=== PATIENT | male | born 1965 | race Caucasian/White ===

== ENCOUNTER 2022-10-27 19:42 | Inpatient (IN) | payer BC, SELFPAY ==
[2022-10-27 19:44] VITALS: BP 170/68; PULSE 120; RESP 22; TEMP 37.4; O2SAT 71
[2022-10-27 20:01] VITALS: O2SAT 94
--- NOTE | 2022-10-27 20:05 | CT_ITS ---
STUDY: CT ABDOMEN AND PELVIS WITH CONTRAST - URINARY TRACT REASON FOR EXAM: Male, 57 years old. Abdominal distention -- IV PO Contrast RADIATION DOSAGE (If Supplied By Facility): CTDIvol = ( 23.62 ) mGy, DLP = ( 1270.13 ) mGycm TECHNIQUE: IV 100mL Isovue-370 was administered. Transaxial images were obtained from the dome of the diaphragm to the symphysis pubis in the arterial, nephrographic and excretory phases. Multiplanar coronal and sagittal images were reformatted. Individualized Dose Optimization Techniques Were Used For This CT. COMPARISON: None FINDINGS: LOWER CHEST: Referred to the CT chest from the same date for additional findings.. LIVER: Diffuse hepatic nodularity, consistent with cirrhosis. Partially thrombosed main portal and left portal vein. Portosystemic collateral vasculature including splenorenal shunt. GALLBLADDER/BILE DUCTS: Calcified gallstones in the decompressed gallbladder.. PANCREAS: Normal. SPLEEN: Normal. ADRENAL GLANDS: Normal. KIDNEYS/URETERS/BLADDER: Normal. RETROPERITONEUM/AORTA: Mild atherosclerotic calcifications.. BOWEL/MESENTERY: Mild wall thickening throughout the colon. No bowel dilatation. Enteric contrast transits unobstructed into the colon. Scattered mild wall thickening in the small bowel.. APPENDIX: Identified and normal. PERITONEUM: Moderate ascites. Diffuse infiltration of the mesentery and omentum, likely due to ascites. Carcinomatosis is not excluded. REPRODUCTIVE ORGANS: Normal. BONES/SOFT TISSUES: Extensive subcutaneous edema. Bilateral L5 pars defects. Grade 1 anterolisthesis L5 on S1. No acute osseous abnormality.. OTHER: None. CT/Abdomen/Pelvis WITH Contrast IMPRESSION: 1. Cirrhosis and sequela of portal hypertension as above. 2. Partial thrombosis of the portal vein. 3. Mild bowel wall thickening, nonspecific in the setting of cirrhosis and ascites, cannot exclude enterocolitis. 4. Please refer to the CT chest from the same date for additional findings. Electronically Signed: Vazquez Roger MD at 22:54 EDT ,
--- NOTE | 2022-10-27 20:05 | EKG12_ITS ---
Test Reason : CP Blood Pressure : / mmHG Vent. Rate : 105 BPM Atrial Rate : 105 BPM P-R Int : 122 ms QRS Dur : 072 ms QT Int : 314 ms P-R-T Axes : 032 017 009 degrees QTc Int : 415 ms Sinus tachycardia Nonspecific T wave abnormality Abnormal ECG Confirmed by HEIDE CHA, RAJAN ([id number]), school photograph editor AMY LABOY ([id number]) on 10/28/2022 12:59:42 P M Referred By: PANKAJ Confirmed By:JOLANTA JAEGER MD
[2022-10-27 20:17] VITALS: O2SAT 94
[2022-10-27 20:20] VITALS: O2SAT 93
[2022-10-27] MEDS: Aspirin 81 MG TAB.CHEW 324 MG PO (20:23)
[2022-10-27] MEDS: Furosemide 40 MG/4 ML Vial IV (20:23)
[2022-10-27 20:26] VITALS: BMI 37.0
--- NOTE | 2022-10-27 20:27 | ED.VIS.DYS ---
HPI History of Present Illness Chief Complaint: Shortness of Breath Informant: patient Onset/Context/Timing Onset: Weeks (1) Context: gradual Timing: Continuous Quality: Positive for Dyspnea on exertion Worsened by: Exertion Relieved by: Albuterol Associated Symptoms cough; Negative for rhinorrhea, post nasal drip, ear pain, fever, sore throat or chills Chest Pain: Positive for Dull Narrative Narrative: Patient presents with shortness of breath that has been getting worse over the past week. Patient states it is gradually getting worse. Patient states it has been waxing and waning over the past week. Patient states his breathing is worse with any exertion. Patient states his albuterol inhaler seems to help. Patient admits to a cough but does not produce much sputum. Patient does admit to some dull pain in his chest. Patient denies any fevers or chills. Patient does admit to some increased swelling. Patient denies any nausea or vomiting. [facility] Medical History (Updated 10/28/22 @ 01:[address] Brandon Gibson DO) Diabetes Hypertension Hypothyroidism Home Medications levothyroxine 50 mcg tablet 50 mcg PO DAILY 10/27/22 [History Last Taken Unknown] lisinopril 10 mg tablet 10 mg PO DAILY 10/27/22 [History Last Taken Unknown] metformin 750 mg tablet,extended release 24 hr 1,500 mg PO DAILY 10/27/22 [History Last Taken Unknown] metformin 750 mg tablet,extended release 24 hr 750 mg PO QHS 10/27/22 [History Last Taken Unknown] sitagliptin phosphate 100 mg tablet (Januvia) 100 mg PO DAILY 10/27/22 [History Last Taken Unknown] Allergy/AdvReac Type Severity Reaction Status Date / Time No Known Allergies Allergy Verified 10/27/22 20:25 Surgical History no surgical history no surgical history Social History (Updated 10/27/22 @ 20:[address] Brandon Gibson DO) Smoking Status: Former smoker ROS ROS ED Constitutional Constitutional ED: Denies chills or fever(s) Eyes Eyes: Denies blurry vision or change in vision ENT ENT ED: Denies rhinorrhea or sore throat Cardiovascular Cardiovascular: Reports chest pain; Denies palpitations Respiratory/Chest Respiratory/Chest: Reports cough and dyspnea Gastrointestinal Gastrointestinal: Denies nausea or vomiting Genitourinary Genitourinary ED: Denies dysuria or hematuria Musculoskeletal Musculoskeletal: Reports back pain; Denies neck pain Integumentary Reports rash; Denies abscess Neurologic Neurologic: Reports headache(s); Denies weakness Allergic/Immunologic Allergic/Immunologic ED: Denies mouth swelling or urticaria EXAM Physical Exam Const Vital Signs: 10/27/22 19:44 10/27/22 20:01 10/27/22 20:17 Temperature 99.3 F H Temperature Source Temporal Pulse Rate 120 H Respiratory Rate 22 H Respiratory Effort Short of Breath Respiratory Depth Deep Respiratory Pattern Hyperpnea Blood Pressure 170/68 H Blood Pressure Mean 102 Pulse Ox 71 94 Oxygen Delivery Method Room Air Nasal Cannula Nasal Cannula Oxygen Flow Rate (L/min) 6 6 10/27/22 20:20 10/27/22 21:11 Temperature Temperature Source Pulse Rate 106 H Respiratory Rate 25 H Respiratory Effort Respiratory Depth Respiratory Pattern Blood Pressure Blood Pressure Mean Pulse Ox 93 93 Oxygen Delivery Method Nasal Cannula Nasal Cannula Oxygen Flow Rate (L/min) 6 6 Positive well nourished, well developed and obese General Appearance ED: well developed and NAD Nutritional Appearance: obese HEENT Reports moist mucous membranes Eyes PERRL and EOMs intact bilaterally Neck supple and no JVD Resp normal respiratory effort Auscultation: diminished lung sounds diffuse Cardio regular rate and regular rhythm Cardio Narrative: There is a grade 2/6 systolic murmur at the left upper sternal border. GI GI Narrative: Abdomen is distended with positive fluid wave. There is mild diffuse tenderness. There is no rebound or guarding noted. Palpation: soft and tender epigastric, LLQ, RLQ, LUQ, RUQ, periumbilical and suprapubic Extremity normal to inspection General Extremety ED: Negative for edema or tenderness General Extremity: Negative for edema Neuro oriented x3, CN's II-XII intact bilaterally and no sensory deficits noted Sensorium / Orientation: alert Motor Exam: strength 5/5 throughout Psych mental status grossly normal Skin no rashes or lesions noted MDM MDM MDM Narrative Medical decision making narrative: Differential diagnosis includes congestive heart failure, cirrhosis, pancreatitis, urinary tract infection, cardiac dysrhythmia, cardiac ischemia, acute kidney injury, electrolyte abnormality, and pulmonary embolism. EKG will be obtained to assess for cardiac dysrhythmia and cardiac ischemia. Chest x-ray will be obtained to assess for congestive heart failure and pneumonia. CBC will be obtained to assess for leukocytosis and anemia. Comprehensive metabolic profile will be obtained to assess for hepatic function, renal function, and electrolyte abnormality. High-sensitivity troponin will be obtained to assess for cardiac ischemia. 2-hour repeat high-sensitivity troponin will be obtained to assess for ongoing cardiac ischemia. Urinalysis will be obtained to assess for urinary tract infection and hematuria. BNP will be obtained to assess for congestive heart failure. Lipase will be obtained to assess for pancreatitis. PT with INR and PTT will be obtained to assess for coagulopathy. CT scan of the abdomen pelvis will be obtained to assess for ascites and cirrhosis. Lab Data Attestation: I reviewed the patient's lab results. Lab results narrative: CBC was reviewed. There is a mild anemia with a hemoglobin of 10.6 and hematocrit 32.5. Comprehensive metabolic profile was reviewed. Glucose was elevated at 472. Sodium was 129. Potassium was 5.9. Anion gap was normal. CO2 was normal. BUN was only slightly elevated at 21. Liver function tests were all within normal limits. Lipase was reviewed and was normal. PT with INR and PTT were reviewed. PT was 16.5 and INR is 1.3. PTT was normal at 32.4. D-dimer was reviewed and was elevated at 16.75. BNP was only slightly elevated at 117.7. Urinalysis was reviewed and shows urine glucose of 1000. Occult blood was 150 but there were 0 red blood cells seen. There is no evidence of urinary tract infection. Serum acetone was reviewed and was negative. Labs: Laboratory Results - last 24 hr 10/27/22 10/27/22 10/27/22 20:25 20:25 20:25 WBC 8.5 RBC 3.31 L Hgb 10.6 L Hct 32.5 L MCV 98.2 H MCH 32.0 MCHC 32.6 RDW Std Deviation 52.0 H RDW Coeff of [place] 14.5 Plt Count 131 L MPV 8.8 Immature Gran % (Auto) 0.200 Neut % (Auto) 80.5 H Lymph % (Auto) 6.4 L [place] % (Auto) 10.2 H Eos % (Auto) 2.0 Baso % (Auto) 0.7 Absolute Neuts (auto) 6.8 Absolute Lymphs (auto) 0.54 L Nucleated RBC % 0 Differential Comment SCANNED PT 16.5 H INR 1.3 APTT 32.4 D-Dimer Quant (PE/DVT) 16.75 H* Sodium 129 L Potassium 5.9 H Chloride 100 Carbon Dioxide 24.0 Anion Gap 5 BUN 21 H Creatinine 1.18 Estim Creat Clear Calc 65.21 Est GFR (MDRD) Af Amer 81 Est GFR (MDRD) Non-Af 67 BUN/Creatinine Ratio 17.8 Glucose 472 H* Calcium 8.6 Total Bilirubin 0.90 AST 35 ALT 33 Alkaline Phosphatase 84 Troponin I High Sens 56 B-Natriuretic Peptide Total Protein 6.4 Albumin 1.8 L Globulin 4.6 H Albumin/Globulin Ratio 0.4 L Lipase 45 Urine Color Urine Clarity Urine pH Ur Specific [place] Urine Protein Urine Glucose (UA) Urine Ketones Urine Occult Blood Urine Nitrite Urine Bilirubin Urine Urobilinogen Ur Leukocyte Esterase Urine RBC Urine WBC Ur Squamous Epith Cells Urine Bacteria Urine Mucus Acetone Level 10/27/22 10/27/22 10/27/22 20:25 20:55 22:12 WBC RBC Hgb Hct MCV MCH MCHC RDW Std Deviation RDW Coeff of [place] Plt Count MPV Immature Gran % (Auto) Neut % (Auto) Lymph % (Auto) [place] % (Auto) Eos % (Auto) Baso % (Auto) Absolute Neuts (auto) Absolute Lymphs (auto) Nucleated RBC % Differential Comment PT INR APTT D-Dimer Quant (PE/DVT) Sodium Potassium Chloride Carbon Dioxide Anion Gap BUN Creatinine Estim Creat Clear Calc Est GFR (MDRD) Af Amer Est GFR (MDRD) Non-Af BUN/Creatinine Ratio Glucose Calcium Total Bilirubin AST ALT Alkaline Phosphatase Troponin I High Sens B-Natriuretic Peptide 117.7 H Total Protein Albumin Globulin Albumin/Globulin Ratio Lipase Urine Color Yellow Urine Clarity Clear Urine pH 6.0 Ur Specific [place] 1.015 Urine Protein 30 H Urine Glucose (UA) 1000 H Urine Ketones Negative Urine Occult Blood 150 H Urine Nitrite Negative Urine Bilirubin Negative Urine Urobilinogen Normal Ur Leukocyte Esterase Negative Urine RBC 0 SEEN Urine WBC 0 SEEN Ur Squamous Epith Cells 0 SEEN Urine Bacteria 0 SEEN Urine Mucus 0 SEEN Acetone Level NEGATIVE Radiography Diagnostic Testing: Clinical Impression(s) from Imaging Studies Abdomen/Pelvis CT 10/27/22 20:05 IMPRESSION: 1. Cirrhosis and sequela of portal hypertension as above. 2. Partial thrombosis of the portal vein. 3. Mild bowel wall thickening, nonspecific in the setting of cirrhosis and ascites, cannot exclude enterocolitis. 4. Please refer to the CT chest from the same date for additional findings. Electronically Signed: Vazquez Roger MD at 22:54 EDT , Chest CTA 10/27/22 21:36 IMPRESSION: 1. Evaluation limited due to motion. 2. No pulmonary embolism to the lobar level. 3. Large left pleural effusion. 4. Atelectasis of the left lower lobe and partial atelectasis of left upper lobe. 5. Scattered groundglass opacities in the right lung with associated bronchiectasis, differential includes chronic inflammatory changes, interstitial fibrotic changes or infection. 6. Cirrhosis and sequela of portal hypertension. Please refer to the CT abdomen pelvis from the same date for additional findings. Electronically Signed: Vazquez Roger MD at 22:48 EDT , CT scan of the abdomen pelvis was obtained. There is cirrhosis and portal hypertension. There is a partial thrombosis of the portal vein. There is some mild bowel wall thickening which is nonspecific. This was interpreted by the radiologist and was independently reviewed by myself. Due to the elevated D-dimer, CTA of the chest was obtained. There is no evidence of pulmonary embolism to the lobar level. There is a large left pleural effusion. There is atelectasis of the left lower lobe and partial atelectasis of the left upper lobe. There are scattered groundglass opacities in the right lung associated with bronchiectasis. This was interpreted by the radiologist was also independently reviewed by myself. EKG Initial EKG: Attestation: I personally reviewed and interpreted this EKG as follows: Interpretation: Sinus Tachycardia (105) and Non-Specific ST Changes Comments: EKG was obtained. On my independent interpretation, it showed a sinus tachycardia with a rate of 105. NC interval, QRS interval, and QTc intervals were all normal. [place] was normal. There are nonspecific ST-T wave changes. Prior EKG tracings: not available for review Prior: No Prior Management Discussion w/another healthcare provider: Hospitalist and Avionics Integration Engineer Treatment and Re-Evaluation :: Patient was given Lasix initially. Patient was given aspirin. Because of the hyperkalemia, patient was given calcium gluconate, and insulin. Because of the partial thrombosis of the portal vein, patient was given a dose of Lovenox. Patient was advised of his findings. Patient was advised of the need for admission to the hospital. Case was discussed with the hospitalist. He recommended consulting with Dr. Eisenberg, vascular surgeon, regarding the partial thrombosis of the portal vein. Dr. Eisenberg did not recommend any further treatment. Hospitalist will admit the patient to PCU. Patient understood and was agreeable with the plan. All questions were answered. Critical Care Time Critical Care Time: Yes Critical care time (excluding procedures): 30-74 minutes (32), Including time spent:, Discussing w/Patient &/or Family/Tubular Riveter, Discussing w/Consultants, Arranging Admission or Transfer and Performing Direct Patient Care at Bedside Discharge Plan Dx/Rx/DC Orders Clinical Impression: Hypoxia, Pleural effusion, Ascites, Cirrhosis of liver, Hyperkalemia, Hyperglycemia Disposition Disposition: Acute Care Hospital [facility]
[2022-10-27 20:42] LABS: Absolute Lymphocyte Count 0.54 X10^3/uL (0.83-4.51); Absolute Neutrophil Count 6.8 X10^3/uL (2.0-7.7); Basophil# 0.06 X10^3/uL; Basophil% 0.7 % (0-1); Eosinophil# 0.17 X10^3/uL; Hematocrit 32.5 % (40-54); Hemoglobin 10.6 g/dL (13.0-16.5); Lymphocyte # 0.54 X10^3/ul (0.83-4.51); Lymphocyte % 6.4 % (19-41); Mean Corp Hgb Conc 32.6 g/dL (32-36); Mean Corpuscular Volume 98.2 fL (80-94); Mean Platelet Vol. 8.8 fl (6.2-12.0); Monocyte# 0.86 X10^3/uL; Monocyte% 10.2 % (0-10); NRBC Flagged by Analyzer 0 % (0-5); Neutrophil % 80.5 % (47-70); POSITIVE DIFFERENTIAL YES; Platelet Count 131 K/mm3 (150-450); RBC Distribution Width CV 14.5 % (11.6-14.6); Red Blood Count 3.31 M/mm3 (4.6-6.2); White Blood Count 8.5 K/mm3 (4.4-11.0)
[2022-10-27 20:44] LABS: Differential Indicated SCAN CRITERIA MET
[2022-10-27 21:01] LABS: Bacteria 0 SEEN /hpf (None Seen); Mucous, Urine 0 SEEN /hpf (<or=2+); Red Blood Cells-Urine 0 SEEN /hpf (0-5); Squamous Epithelial Cells - UA 0 SEEN /hpf (0-5); White Blood Cells 0 SEEN /hpf (0-5)
[2022-10-27 21:05] LABS: ALB/GLOB Ratio 0.4 RATIO (0.9-2.4); AST(SGOT) 35 U/L (15-37); Alanine Aminotransfer ALT/SGPT 33 U/L (16-61); Albumin, Serum 1.8 g/dL (3.2-5.0); Alkaline Phosphatase 84 U/L (45-117); Anion Gap 5 (5-15); BUN 21 mg/dL (7-18); BUN/Creat Ratio 17.8 RATIO (10-20); Calcium,Total 8.6 mg/dL (8.5-10.1); Chloride 100 mmol/L (98-107); Creatinine, Serum 1.18 mg/dL (0.70-1.30); EST Glomerular Filtration Rate 67 mL/min (>60); Est Glom Filt Rate - Afr Amer 81 mL/min (>60); Estimated Creatinine Clearance 65.21 ml/min; Globulin 4.6 g/dL (2.2-4.2); Glucose 472 mg/dL (74-106); Lipase 45 U/L (13-75); Potassium 5.9 mmol/L (3.5-5.1); Protein, Total 6.4 g/dL (6.4-8.2); Sodium Level 129 mmol/L (136-145); Troponin-I HS (w/2H Reflex) 56 pg/mL (3.0-78.0)
[2022-10-27 21:07] LABS: Differential Comment SCANNED
[2022-10-27 21:10] LABS: International Normalized Ratio 1.3; Prothrombin Time (Protime)PT. 16.5 SECONDS (11.7-14.9)
[2022-10-27 21:11] VITALS: PULSE 106; RESP 25; O2SAT 93
[2022-10-27 21:11] LABS: Partial Thromboplast Time 32.4 Seconds (24.1-36.2)
[2022-10-27 21:12] LABS: D-Dimer Quantitative (DVT/PE) 16.75 FEU/ug/m (0.27-0.49)
[2022-10-27 21:19] LABS: Color, Urine Yellow (Yellow); Glucose, Dipstick 1000 mg/dl (Normal); Ketone-Dipstick Negative (Negative); Leukocyte Esterase-Dipstick Negative /ul (Negative); Nitrite-Dipstick Negative (Negative); Occult Blood-Urine 150 /ul (Negative); Protein-Dipstick 30 mg/dl (Negative); Specific Gravity, Urine 1.015 (1.002-1.030); Urine Bilirubin Dipstick Negative (Negative); Urine Clarity Clear (Clear); Urine Urobilinogen Normal (Normal)
[2022-10-27 21:31] LABS: BNP,B-Type NATRIURETIC PEPTIDE 117.7 pg/mL (0-100)
--- NOTE | 2022-10-27 21:36 | CT_ITS ---
STUDY: CTA CHEST REASON FOR EXAM: Male, 57 years old. Elevated D-dimer RADIATION DOSAGE (If Supplied By Facility): CTDIvol = ( 22.46 ) mGy, DLP = ( 759.76 ) mGycm TECHNIQUE: The examination was performed with the intravenous administration of IV 100mL Isovue-370. Post-processing of the angiographic images was performed, with multiplanar reformation and 3D reconstruction. Individualized dose optimization techniques were used for this CT. COMPARISON: None FINDINGS: Evaluation limited due to motion. LUNGS: Subsegmental right upper lobe bronchiectasis and groundglass opacities with additional scattered peripheral groundglass opacities in the right lung. Atelectasis of the left lower lobe. Partial atelectasis of the left upper lobe.. AORTA/GREAT VESSELS: No aneurysm. Mild atherosclerotic calcifications. PULMONARY VESSELS: Evaluation limited due to motion. No pulmonary embolus to the lobar level. PLEURA: Large left pleural effusion. MEDIASTINUM: Coronary artery calcifications. And aortic valvular calcifications. UPPER ABDOMEN: The liver is diffusely nodular, consistent with cirrhosis. Portosystemic collateral vasculature partially visualized. BONES/SOFT TISSUES: Normal. OTHER: None. CT/CTA Chest W/WO Contrast IMPRESSION: 1. Evaluation limited due to motion. 2. No pulmonary embolism to the lobar level. 3. Large left pleural effusion. 4. Atelectasis of the left lower lobe and partial atelectasis of left upper lobe. 5. Scattered groundglass opacities in the right lung with associated bronchiectasis, differential includes chronic inflammatory changes, interstitial fibrotic changes or infection. 6. Cirrhosis and sequela of portal hypertension. Please refer to the CT abdomen pelvis from the same date for additional findings. Electronically Signed: Vazquez Roger MD at 22:48 EDT ,
[2022-10-27] MEDS: Calcium Gluconate IV 3 GM in Syringe 1 EACH IV (22:13)
[2022-10-27] MEDS: Insulin Lispro 10 UNIT in Syringe 0 ML 6 UNIT IV (22:13)
[2022-10-28] VITALS (11 sets, daily range): BP systolic 112–165; BP diastolic 53–70; PULSE 70–98; RESP 18–24; TEMP 36.3–37.2; O2SAT 91–97; BMI 37.7; BMI 37.9
[2022-10-28] MEDS: Enoxaparin 100 MG/ML Syringe SC (00:05)
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
--- NOTE | 2022-10-28 01:28 | US_ITS ---
PROCEDURE: Ultrasound guided paracentesis. DATE OF EXAMINATION: October 28, 2022. INDICATION: Male, 57 years old. Ascites. PHYSICIAN: Calvin Mcclure M.D. TECHNIQUE: The risks, benefits, and alternatives to the procedure were explained to the patient. The specific risks of bleeding, infection, and damage to bowel were detailed and accepted. Witnessed informed consent was obtained. The abdomen was ultrasonographically surveyed. An appropriate pocket of fluid was identified at the left lower quadrant. The skin were cleaned and prepped in the usual sterile fashion. Using ultrasound guidance, the peritoneal cavity was accessed with a 5-Maori paracentesis needle/catheter system. The trocar was removed. A total of 3250 ml of chitra-colored fluid were removed from the peritoneal cavity. A 100 mL sample was sent to the laboratory for analysis. The catheter was removed and a sterile dressing was applied. The procedure was well tolerated. US/Paracentesis with US IMPRESSION: Ultrasound guided paracentesis. Electronically Signed: Calvin Mcclure MD at 14:54 EDT ,
[2022-10-28] MEDS: Levothyroxine 50 MCG Tablet PO (05:10)
[2022-10-28 07:08] LABS: Absolute Lymphocyte Count 0.62 X10^3/uL (0.83-4.51); Absolute Neutrophil Count 6.5 X10^3/uL (2.0-7.7); Basophil# 0.08 X10^3/uL; Basophil% 0.9 % (0-1); Eosinophil# 0.37 X10^3/uL; Eosinophils% 4.2 % (0-5); Hematocrit 32.1 % (40-54); Hemoglobin 10.1 g/dL (13.0-16.5); Lymphocyte # 0.62 X10^3/ul (0.83-4.51); Lymphocyte % 7.1 % (19-41); Mean Corp Hgb Conc 31.5 g/dL (32-36); Mean Corpuscular Hgb 31.6 pg (27.0-32.0); Mean Corpuscular Volume 100.3 fL (80-94); Mean Platelet Vol. 8.9 fl (6.2-12.0); Monocyte# 1.06 X10^3/uL; Monocyte% 12.2 % (0-10); NRBC Flagged by Analyzer 0 % (0-5); Neutrophil # 6.54 X10^3/uL (2.7-7.7); Neutrophil % 75.1 % (47-70); Platelet Count 155 K/mm3 (150-450); RBC Distribution Width CV 14.4 % (11.6-14.6); RBC Distribution Width SD 53.5 fl (35.1-43.9); White Blood Count 8.7 K/mm3 (4.4-11.0)
[2022-10-28 07:25] LABS: ALB/GLOB Ratio 0.4 RATIO (0.9-2.4); AST(SGOT) 29 U/L (15-37); Alanine Aminotransfer ALT/SGPT 31 U/L (16-61); Albumin, Serum 1.8 g/dL (3.2-5.0); Alkaline Phosphatase 85 U/L (45-117); Anion Gap 5 (5-15); BUN 20 mg/dL (7-18); BUN/Creat Ratio 20.5 RATIO (10-20); Calcium,Total 8.8 mg/dL (8.5-10.1); Chloride 100 mmol/L (98-107); Creatinine, Serum 0.98 mg/dL (0.70-1.30); EST Glomerular Filtration Rate 84 mL/min (>60); Est Glom Filt Rate - Afr Amer 101 mL/min (>60); Estimated Creatinine Clearance 73.24 ml/min; Globulin 4.4 g/dL (2.2-4.2); Glucose 391 mg/dL (74-106); Potassium 5.5 mmol/L (3.5-5.1); Protein, Total 6.2 g/dL (6.4-8.2); Sodium Level 130 mmol/L (136-145)
[2022-10-28] MEDS: Insulin Lispro 100 UNIT/ML INSULN.PEN SC ×4 (07:28→21:09)
[2022-10-28 07:45] LABS: Bedside Glucose 382 mg/dL (74-106)
--- NOTE | 2022-10-28 07:57 | PCM.PN.HOSP ---
Reason for Visit Reason for Visit: Shortness of breath Subjective Subjective Patient is a 57-year-old male with a history of alcohol abuse who presented to the emergency department with progressively worsening shortness of breath. He has no known history of liver disease at presentation. He reported his shortness of breath was at rest but markedly increased with exertion. He has a chronic cough which is occasionally productive of whitish to yellowish sputum and has had worsening swelling in his legs and abdomen. Oxygen saturation on presentation was 71% on room air. His vital signs were otherwise fairly unremarkable. CBC showed an anemia that is macrocytic in nature but was otherwise unremarkable. We have no baseline data on this gentleman. INR was 1.3. D-dimer was markedly elevated at 16.75. Chemistry panel showed hyponatremia with a sodium of 129, hyperkalemia with a potassium of 5.9. Renal function was normal at 1.18. Glucose was 472 with a normal anion gap and bicarb. BNP was slightly elevated 117.7. His albumin is low. UA was overall unremarkable. D-dimer a CTA of the chest and CT of the abdomen pelvis was performed. CTA of the chest showed no pulmonary embolus, large left pleural effusion, atelectasis of the left lower lobe and scattered groundglass opacities in the right lung associated bronchiectasis as well as cirrhosis with sequela of portal hypertension. Abdominal CTA showed cirrhosis with portal hypertension, partial thrombus of the portal vein, and mild bowel wall thickening. He was given therapeutic dose of Lovenox x1 emergency department and admitted to the medical floor. Patient was evaluated and is at bedside helps with history. Per discussion he has had some worsening swelling over the last about month may be 8 weeks that has been more fluctuating than it is at the time of presentation. He typically weighs 185 pounds so his current weight is up dramatically. They report that his primary care physician noted a cardiac murmur for which an echocardiogram was ordered however they have not yet been able to make this appointment. The patient has no significant alcohol abuse history. He is never been told he has liver disease. He never used any IV drugs. Only history of drug use is marijuana. He states his mother had liver disease and thought she from complications related to this. He is unclear what type of liver disease she had. He has never been told previously that he has any liver abnormalities. Objective Data Objective Data Vital Signs: Vital Signs Temp Pulse Resp BP Pulse Ox O2 Del Method O2 Flow Rate 98.6 F 93 18 140/62 H 94 Nasal Cannula 5 10/28/22 05:18 10/28/22 05:18 10/28/22 05:18 10/28/22 05:18 10/28/22 05:18 10/28/22 05:18 10/28/22 05:18 Oxygen Flow Rate (L/min) 5 Oxygen Delivery Method Nasal Cannula Weight: 107 kg Body Mass Index (BMI) 37.9 Intake & Output: Intake and Output for Last 24 Hours 10/26/22 10/27/22 10/28/22 23:59 23:59 23:59 Intake Total 200 / 200 Balance 200 / 200 Lab / Micro Data Result Diagrams: 10/28/22 06:40 10/28/22 06:40 Labs: Laboratory Results - last 24 hr 10/27/22 20:25: WBC 8.5, RBC 3.31 L, Hgb 10.6 L, Hct 32.5 L, MCV 98.2 H, MCH 32.0, MCHC 32.6, RDW Std Deviation 52.0 H, RDW Coeff of [place] 14.5, Plt Count 131 L, MPV 8.8, Immature Gran % (Auto) 0.200, Neut % (Auto) 80.5 H, Lymph % (Auto) 6.4 L, [place] % (Auto) 10.2 H, Eos % (Auto) 2.0, Baso % (Auto) 0.7, Absolute Neuts (auto) 6.8, Absolute Lymphs (auto) 0.54 L, Nucleated RBC % 0, Differential Comment SCANNED 10/27/22 20:25: Sodium 129 L, Potassium 5.9 H, Chloride 100, Carbon Dioxide 24.0, Anion Gap 5, BUN 21 H, Creatinine 1.18, Estim Creat Clear Calc 65.21, Est GFR (MDRD) Af Amer 81, Est GFR (MDRD) Non-Af 67, BUN/Creatinine Ratio 17.8, Glucose 472 H*, Calcium 8.6, Total Bilirubin 0.90, AST 35, ALT 33, Alkaline Phosphatase 84, Troponin I High Sens 56, Total Protein 6.4, Albumin 1.8 L, Globulin 4.6 H, Albumin/Globulin Ratio 0.4 L, Lipase 45 10/27/22 20:25: PT 16.5 H, INR 1.3, APTT 32.4, D-Dimer Quant (PE/DVT) 16.75 H* 10/27/22 20:25: B-Natriuretic Peptide 117.7 H 10/27/22 20:55: Urine Color Yellow, Urine Clarity Clear, Urine pH 6.0, Ur Specific [place] 1.015, Urine Protein 30 H, Urine Glucose (UA) 1000 H, Urine Ketones Negative, Urine Occult Blood 150 H, Urine Nitrite Negative, Urine Bilirubin Negative, Urine Urobilinogen Normal, Ur Leukocyte Esterase Negative, Urine RBC 0 SEEN, Urine WBC 0 SEEN, Ur Squamous Epith Cells 0 SEEN, Urine Bacteria 0 SEEN, Urine Mucus 0 SEEN 10/27/22 22:12: Acetone Level NEGATIVE 10/28/22 06:40: WBC 8.7, RBC 3.20 L, Hgb 10.1 L, Hct 32.1 L, MCV 100.3 H, MCH 31.6, MCHC 31.5 L, RDW Std Deviation 53.5 H, RDW Coeff of Luna 14.4, Plt Count 155, MPV 8.9, Immature Gran % (Auto) 0.500, Neut % (Auto) 75.1 H, Lymph % (Auto) 7.1 L, [place] % (Auto) 12.2 H, Eos % (Auto) 4.2, Baso % (Auto) 0.9, Absolute Neuts (auto) 6.5, Absolute Lymphs (auto) 0.62 L, Nucleated RBC % 0 10/28/22 06:40: Sodium 130 L, Potassium 5.5 H, Chloride 100, Carbon Dioxide 25.0, Anion Gap 5, BUN 20 H, Creatinine 0.98, Estim Creat Clear Calc 73.24, Est GFR (MDRD) Af Amer 101, Est GFR (MDRD) Non-Af 84, BUN/Creatinine Ratio 20.5 H, Glucose 391 H, Calcium 8.8, Total Bilirubin 0.90, AST 29, ALT 31, Alkaline Phosphatase 85, Total Protein 6.2 L, Albumin 1.8 L, Globulin 4.4 H, Albumin/Globulin Ratio 0.4 L 10/28/22 07:26: POC Glucose 382 H Radiography Diagnostic Testing: Radiology Impression Abdomen/Pelvis CT 10/27/22 20:05 IMPRESSION: 1. Cirrhosis and sequela of portal hypertension as above. 2. Partial thrombosis of the portal vein. 3. Mild bowel wall thickening, nonspecific in the setting of cirrhosis and ascites, cannot exclude enterocolitis. 4. Please refer to the CT chest from the same date for additional findings. Electronically Signed: Vazquez Roger MD at 22:54 EDT , Chest CTA 10/27/22 21:36 IMPRESSION: 1. Evaluation limited due to motion. 2. No pulmonary embolism to the lobar level. 3. Large left pleural effusion. 4. Atelectasis of the left lower lobe and partial atelectasis of left upper lobe. 5. Scattered groundglass opacities in the right lung with associated bronchiectasis, differential includes chronic inflammatory changes, interstitial fibrotic changes or infection. 6. Cirrhosis and sequela of portal hypertension. Please refer to the CT abdomen pelvis from the same date for additional findings. Electronically Signed: Vazquez Roger MD at 22:48 EDT , Physical Exam Const alert, oriented x3 and no apparent distress Constitutional Narrative: Upper middle-aged white male, lying in bed, appears much older than stated age, at bedside, appears comfortable and nontoxic at this time however does look chronically ill, appearance is somewhat disheveled HEENT head/scalp atraumatic, moist oral mucous membranes and oropharynx normal HEENT Narrative: Dentition is poor, Mallampati is 2, no thrush Eyes PERRL, EOMs intact bilaterally and conjunctivae normal Eyes Narrative: No scleral icterus Neck no lymphadenopathy, supple, no JVD and no carotid bruits Neck Narrative: Cardiac murmur that radiates to bilateral carotid arteries, trachea midline, no thyroid enlargement Resp normal respiratory effort, no retractions and no use of accessory muscles Resp Narrative: Marked diminished on the right, few scattered wheeze on the left Auscultation: wheezes; Negative for rales or rhonchi Cardio regular rate, regular rhythm, S1 normal heart sound, no rub, no gallops and no clicks; Negative for S2 normal heart sound or no murmurs Cardio Narrative: 4 out of 6 systolic murmur with a soft S2 radiates to bilateral carotid arteries loudest at right upper sternal border however here diffusely GI soft to palpation GI Narrative: Protuberant abdomen, no significant fluid wave, no organomegaly noted on exam however exam limited secondary to abdominal size, bowel sounds are normal Extremity Extremity Narrative: 3+ bilateral doughy pitting edema from feet up to thighs with some anasarca noted in anterior abdomen, no cyanosis or clubbing Skin No no rashes or lesions noted, no wounds, skin turgor normal, no jaundice, no petechiae and no mottling Skin Narrative: telangiectasias noted all over chest and arms Neuro oriented x3, CN's II-XII intact bilaterally, moves all extremities, no focal motor deficits and no sensory deficits noted Neuro Narrative: Generalized weakness Speech: speech normal Psych Psych Narrative: Affect is flattened mood seems somewhat depressed Assessment & Plan Assessment/Plan (1) Acute respiratory failure with hypoxia: (2) Pleural effusion: (3) Ascites: (4) Cirrhosis of liver: (5) Hyperkalemia: (6) Hyperglycemia: (7) Anasarca: (8) Macrocytic anemia: (9) Portal vein thrombosis: (10) Hyponatremia: PLAN: Plan Acute hypoxic respiratory failure secondary to large left pleural effusion -Patient is not oxygen dependent at baseline -Sats at 71% on presentation and patient with tachypnea, tachycardia, and elevated blood pressure related to respiratory distress -Oxygen saturations improved and placed on 6 L nasal cannula and now has been weaned to 5 L nasal cannula with oxygen saturations between 91 and 94% -Wean oxygen as able -We will add as needed albuterol with tobacco abuse history -Thoracentesis ordered -Labs added to calculate lights criteria -Discontinue Lasix 20 mg p.o. twice daily -Suspect oral will not be very effective especially at a low dose given his amount of anasarca and appearing bowel wall edema on CAT scan -Start Bumex IV 1 mg twice daily Large left pleural effusion -May be related to liver disease -Check echocardiogram -Thoracentesis with lab pending -If related to liver disease may recur -Diuretics as above Anasarca -Diuretics as above -Anticipate related to renal failure -We will check echocardiogram to rule out cardiac component Portal vein thrombus -Anticipate related to cirrhosis -JAK2, CD55/CD59 ordered by admitting physician--> pending -Lovenox given emergency department -Start heparin drip this morning as patient will be going for procedures and this is easily reversible -Stop 2 hours prior to thoracentesis then reinitiate following Liver cirrhosis -Etiology is unclear -Patient has never been a heavy user of alcohol however has consumed previously -Check hepatitis C and B antibodies -Check AFP -Check ammonia level and will initiate lactulose if at all elevated to prevent hepatic encephalopathy -Is currently not encephalopathic although does seem fatigued -Nadolol initiated -MELD score was 19.4/Child-Albarran score was 9-class B -Start thiamine and folate -GI consult pending Hyponatremia -Not severe and I suspect this may be chronic however baseline lab is unclear at this time -Likely related to liver disease and volume status -Diuretics as above -Repeat BMP this afternoon and then again in the a.m. Macrocytic anemia -Baseline hemoglobin unknown -No obvious signs of bleeding at this time -Check B12 and folate level -Monitor CBC DM-2 with hyperglycemia -Hold metformin -Hold Januvia -A1c is pending -Patient was markedly hyperglycemic on presentation with a blood sugar greater than 400 -Start Lantus 20 units daily -Sliding scale -Accu-Cheks Hyperkalemia -Hold lisinopril -Continue diuretic -Patient received insulin/Lasix/calcium gluconate on presentation -Repeat BMP today at 1300 -Patient does not appear to be acidotic Hypertension -Blood pressure elevated -Nadolol added -Hold lisinopril due to hyperkalemia -As needed hydralazine Hypothyroidism -Continue levothyroxine -Check a.m. TSH DVT prophylaxis -Full anticoagulation with heparin drip CODE STATUS -Full code
--- NOTE | 2022-10-28 08:22 | ECHOD_ITS ---
Reason For Study: OTHER Procedure This was a 2D Doppler, Color Flow transthoracic echocardiogram. Technically difficult study due to uncooperative patient. Patient refused SSN. Exam performed portable in patient room. Left Ventricle Normal LV size. The estimated ejection fraction is 65 %. Normal diastology for age. No regional wall motion abnormalities noted. Right Ventricle Normal RV size. Normal systolic function. Atria Normal left atrium. Normal right atrium. Mitral Valve There is no mitral valve stenosis. No mitral valve insufficiency. Tricuspid Valve There is no tricuspid stenosis. Unable to estimate RV systolic pressure due to inadequate jet, pulmonary artery pressure probably normal. Aortic Valve The aortic valve is not well visualized. Aortic valve is not well-visualized. By Doppler criteria there appears to be mild aortic stenosis. No aortic valve insufficiency. Pulmonic Valve There is no pulmonic valvular stenosis. No pulmonic valve insufficiency. Great Vessels Normal aortic root. Pericardium/Pleural No pericardial effusion. MMode/2D Measurements & Calculations LAV(MOD-bp): 46.6 ml LVAd ap4: 29.1 cm2 SV(MOD-sp4): 55.2 ml LAV(MOD-bp) Indexed: 21.7 ml/m2 LVLd ap4: 8.1 cm LAV(MOD-sp2): 43.2 ml EDV(MOD-sp4): 85.4 ml LAV(MOD-sp4): 50.5 ml EDV(sp4-el): 88.7 ml LVAs ap4: 15.0 cm2 LVLs ap4: 6.7 cm ESV(MOD-sp4): 30.2 ml ESV(sp4-el): 28.5 ml EF(MOD-sp4): 64.7 % EF(sp4-el): 67.8 % SV(sp4-el): 60.1 ml LA A4 area: 18.8 cm2 RA A4 area: 11.0 cm2 Time Measurements MV dec time: 0.32 sec Doppler Measurements & Calculations MV E max lino: 113.1 cm/sec Lat Peak E' Lino: 12.7 cm/sec Med Peak E' Lino: 9.5 cm/sec MV A max lino: 86.4 cm/sec E/E' lat: 8.9 E/E' med: 11.9 MV E/A: 1.3 MV V2 max: 143.4 cm/sec Ao V2 max: 290.6 cm/sec MV max P.3 mmHg MV dec slope: 371.9 cm/sec2 Ao max P.9 mmHg MV V2 mean: 106.7 cm/sec Ao V2 mean: 200.7 cm/sec MV mean P.8 mmHg Ao mean P.1 mmHg MV V2 VTI: 46.4 cm Ao V2 VTI: 53.9 cm LV V1 max: 141.9 cm/sec LV V1 max P.1 mmHg ECHO/Echo Complete Interpretation Summary Technically difficult study due to patient being uncooperative. The estimated ejection fraction is 65 %. Aortic valve is not well-visualized. By Doppler criteria there appears to be mi ld aortic stenosis. Ordering Physician: Katrin Mcclelland Referring Physician: ADALID WEST Performed By: Toña Little RCS
[2022-10-28 08:27] LABS: Hemoglobin A1c 7.4 % (3.8-5.6)
[2022-10-28 08:35] LABS: LDH 264 U/L (87-241)
[2022-10-28 08:38] LABS: Vitamin B12 1847 pg/mL (211-911)
[2022-10-28] MEDS: Ceftriaxone 1 GM/50 ML BAG IV (10:31)
[2022-10-28] MEDS: Bumetanide 1 MG/4 ML Vial IV ×2 (10:47→16:46)
[2022-10-28] MEDS: 0.9% Saline Lock 10 ML Syringe IV ×2 (10:47→16:46)
[2022-10-28] MEDS: Nadolol 20 MG Tablet 40 MG PO (10:50)
[2022-10-28] MEDS: LINAGLIPTIN 5 MG TABLET PO (10:51)
[2022-10-28] MEDS: Insulin Glargine-YFGN 100 UNIT/ML Pen 20 UNIT SC (10:53)
[2022-10-28 11:55] LABS: Bedside Glucose 408 mg/dL (74-106)
--- NOTE | 2022-10-28 12:00 | CASEMGMT ---
RN GAL Face to Face with patient for initial transition planning/care coordination assessment. RN CM introduced self and role at [facility]. Patient lying in bed, alert and oriented, at bedside. Patient willing to participate in assessment and is able to answer all questions appropriately. Care providers, pharmacy, and demographics verified. Patient wishes to discharge home, denies need for home health at this time. Patient states he has no further needs or concerns at this time. CM to follow for discharge planning needs that may arise. PCP: Ragini, but is leaving and needs new PCP, list provided Specialists: none Preferred Pharmacy: [facility] Insurance: [employer] Prescription Benefit:yes Living Will/HPOA: none LNOK: Living Arrangements: Patient lives with in a 2 story home with bed and bath on first floor. Patient had ramp to enter the home. Patient is independent at home. Transportation: self, DME/HHC: Patient has cane. Patient denies previous HHC or SNF. Disposition Plan: Patient to discharge home with family support. Will monitor for home oxygen at discharge. Kayley BARRAZA, RN, CM
[2022-10-28 12:31] LABS: Hepatitis B Surface Antibody Non-Reactive; Hepatitis C Antibody Non-Reactive (Nonreactive)
--- NOTE | 2022-10-28 13:06 | MRI_ITS ---
INDICATION: Cirrhosis, portal vein thrombosis, elevated alpha- protein. EXAMINATION: MR Abdomen W/O Contrast TECHNIQUE: Multiplanar and multisequence MR images of the abdomen were obtained. IV Contrast Dosage and Agent: None. COMPARISON: CTA chest and CT abdomen and pelvis October 27, 2022. FINDINGS: engineering specialist technician states patient uncooperative, moving throughout the exam. Examination is significantly degraded by motion artifact on all series. LOWER CHEST: Large left pleural effusion and left lower lobe atelectasis. No cardiomegaly or pericardial effusion. LIVER: Extensively lobulated, cirrhotic liver morphology, enlarged caudate lobe. Thrombosis of the portal vein, better demonstrated on the contrast enhanced CT examination. No definite mass, limited by motion. GALLBLADDER AND BILIARY TREE: Completely distended with several low T2 signal intensity stones. No biliary ductal dilatation. PANCREAS: No focal cystic or solid mass. No interstitial edema or pancreatic duct dilatation identified. SPLEEN: Enlarged, approximately 15 cm AP, without focal cystic or solid mass. ADRENAL GLANDS: No nodules. KIDNEYS AND URETERS: Normal renal size and position. No hydronephrosis. PERITONEUM: Ascites within the abdomen and pelvis. LYMPH NODES: Enlarged marcus hepatis lymph nodes, better demonstrated on CT. VESSELS: Aorta is non-dilated. Normal flow void. MRI/Abdomen without Contrast IMPRESSION: Examination is significantly degraded by motion artifact. Left pleural effusion with left lower lobe atelectasis or pneumonia. Cirrhosis and portal venous hypertension. Portal vein thrombosis better demonstrated by CT with contrast. Ascites. Cholelithiasis. Consider repeat MRI evaluation without and with contrast, possibly with sedation. Electronically Signed: Rafael Gregorio MD at 17:49 EDT ,
[2022-10-28 13:15] LABS: Anion Gap 3 (5-15); BUN 19 mg/dL (7-18); BUN/Creat Ratio 17.1 RATIO (10-20); Calcium,Total 8.8 mg/dL (8.5-10.1); Chloride 100 mmol/L (98-107); Creatinine, Serum 1.11 mg/dL (0.70-1.30); EST Glomerular Filtration Rate 72 mL/min (>60); Est Glom Filt Rate - Afr Amer 87 mL/min (>60); Estimated Creatinine Clearance 64.66 ml/min; Glucose 375 mg/dL (74-106); Potassium 5.5 mmol/L (3.5-5.1); Sodium Level 130 mmol/L (136-145)
[2022-10-28 13:45] LABS: Ferritin 38 ng/mL (26-388); Iron 33 ug/dL (65-175); Iron Binding Capacity,Total 283 ug/dL (250-450); PERCENT IRON SATURATION 11.7 % (15.0-55.0)
[2022-10-28] MEDS: Lidocaine 2% (20 ml mdv) 20 ML Vial INFILT (14:00)
--- NOTE | 2022-10-28 14:00 | FLU_PTH ---
PATIENT: SEBAS YI II LOC: [facility] U#:[id number] AGE/SX: 57/M ROOM: [facility] RE10/28/[address]: Dr. Katrin Mcclelland DO : 1965 BED: 1 DIS: 10/31/2022 SPEC #: [id number] RECD: 10/28/22 14:32 STATUS: KARAN REQ #: [id number] SYDNEY: 10/28/22 14:[address]: Katrin Mcclelland DEPT: CYTOLOGY RECD BY: Mitzi Banda ENTERED: 10/29/22 09:32 SP TYPE: Fluid OTHR DR: MD Dr. Xochitl June DO Dr. Rahsaan Friend, Tissues: PARACENTESIS FLUID Procedures: Special Stain Group II Surgery Specimen Level IV Cytospin Fluid HEADER OPERATION: Paracentesis PRE-OP DIAGNOSIS: Ascites TISSUE SUBMITTED: Paracentesis fluid for cytology DIAGNOSIS CYTOLOGY Paracentesis fluid for cytology (cytospin and cell block): Negative for malignant cells. AM:partha 10/30/2022 CYTOLOGY STUDY Slides are reviewed. CYTOLOGY GROSS Received is 100 ml of yellow cloudy fluid labeled with the patient's name and and designated per the requisition as paracentesis. Submitted for cytology preparation including cell block. / partha 10/29/2022 TC:5 CPT: 99713, 09941
[2022-10-28 14:39] LABS: Cytology, Body Fluid / CSF SEE PATHOLOGY REPORT
[2022-10-28 16:04] LABS: Body Fluid Mononuclear WBC # 0.175 10^3/uL; Body Fluid Mononuclear WBC % 87.5 %; Body Fluid Polynuclear WBC # 0.025 10^3/uL; Body Fluid Polynuclear WBC % 12.5 %; Body Fluid Total Cells Counted 0.307 10^3/ul
[2022-10-28 16:10] LABS: Glucose, Body Fluid 391 mg/dL (40-70); LDH,Body Fluid 61 Units/l (Not Establ.); Protein, Body Fluid 0.7 g/dL (Not Establ.)
[2022-10-28] MEDS: HEPARIN/D5w 25,000 UNITS 25,000 UNITS/250 ML IV.SOLN. 0.2 UNITS CONT INF (16:36)
[2022-10-28] MEDS: Heparin Injection (Vial) 5,000 UNIT/ML VIAL 8000 UNIT IV (16:40)
[2022-10-28] MEDS: Sodium Polystyrene Sulfonate 15 GM/60 ML UDC PO (16:50)
[2022-10-28] MEDS: Lactulose 20 GM/30 ML UDC PO ×2 (16:50→21:10)
--- NOTE | 2022-10-28 17:09 | CON.PCM.GI_ITS ---
HPI Consult Data Date of Consult: 10/28/22 HPI Narrative Reason for Consultation: Cirrhosis HPI Narrative: SEBAS YI, is a 57 M who presents with shortness of breath that has been getting worse over the past week.? Patient states it is gradually getting worse.? Patient states it has been waxing and waning over the past week.? Patie nt states his breathing is worse with any exertion.? Patient states his albuterol inhaler seems to help.? Patient admits to a cough but does not produce much sputum.? Patient does admit to some dull pain in his chest.? Patient denies any fevers or chills.? Patient does admit to some increased swelling.? Patient denies any nausea or vomiting. In the ED he underwent CT scan abdomen pelvis that showed a very small cirrhotic liver with mild splenomegaly, splenorenal shunt, portal vein thrombosis. He underwent a large-volume paracentesis. Using ultrasound guidance, the peritoneal cavity was accessed with a 5-Gibraltarian paracentesis needle/catheter system.? The? trocar was removed.? A total of 3250 ml of ? chitra-colored fluid? were removed from the peritoneal cavity.? A 100 mL sample was sent to the laboratory for analysis. The catheter was removed and a sterile dressing was applied. He feels a lot better after getting the fluid removed. He has no history of chronic viral hepatitis. He does not really drink any alcohol. He has a family history of liver cancer in his mother. He has no history of autoimmune disease except for diabetes. [facility] Medical History (Updated 10/28/22 @ 08:[address] Katrin Mcclelland, DO) Diabetes History of alcoholism Hypertension Hypothyroidism Tobacco abuse Home Medications levothyroxine 50 mcg tablet 50 mcg PO DAILY 10/27/22 [History Last Taken Unknown] lisinopril 10 mg tablet 10 mg PO DAILY 10/27/22 [History Last Taken Unknown] metformin 750 mg tablet,extended release 24 hr 1,500 mg PO DAILY 10/27/22 [History Last Taken Unknown] metformin 750 mg tablet,extended release 24 hr 750 mg PO QHS 10/27/22 [History Last Taken Unknown] sitagliptin phosphate 100 mg tablet (Januvia) 100 mg PO DAILY 10/27/22 [History Last Taken Unknown] Allergy/AdvReac Type Severity Reaction Status Date / Time No Known Allergies Allergy Verified 10/27/22 20:25 Family History (Updated 10/28/22 @ 01:[address] Phil Menjivar MD) Other Diabetes Heart disease Surgical History no surgical history Social History Smoking Status: Former smoker Lab / Micro Data Result Diagrams: 10/28/22 06:40 10/28/22 12:35 Labs: Laboratory Results - last 24 hr 10/27/22 20:25: WBC 8.5, RBC 3.31 L, Hgb 10.6 L, Hct 32.5 L, MCV 98.2 H, MCH 32.0, MCHC 32.6, RDW Std Deviation 52.0 H, RDW Coeff of Luna 14.5, Plt Count 131 L, MPV 8.8, Immature Gran % (Auto) 0.200, Neut % (Auto) 80.5 H, Lymph % (Auto) 6.4 L, Isabela % (Auto) 10.2 H, Eos % (Auto) 2.0, Baso % (Auto) 0.7, Absolute Neuts (auto) 6.8, Absolute Lymphs (auto) 0.54 L, Nucleated RBC % 0, Differential Comment SCANNED 10/27/22 20:25: Sodium 129 L, Potassium 5.9 H, Chloride 100, Carbon Dioxide 24.0, Anion Gap 5, BUN 21 H, Creatinine 1.18, Estim Creat Clear Calc 65.21, Est GFR (MDRD) Af Amer 81, Est GFR (MDRD) Non-Af 67, BUN/Creatinine Ratio 17.8, Glucose 472 H*, Calcium 8.6, Total Bilirubin 0.90, AST 35, ALT 33, Alkaline Phosphatase 84, Troponin I High Sens 56, Total Protein 6.4, Albumin 1.8 L, Globulin 4.6 H, Albumin/Globulin Ratio 0.4 L, Lipase 45 10/27/22 20:25: PT 16.5 H, INR 1.3, APTT 32.4, D-Dimer Quant (PE/DVT) 16.75 H* 10/27/22 20:25: B-Natriuretic Peptide 117.7 H 10/27/22 20:55: Urine Color Yellow, Urine Clarity Clear, Urine pH 6.0, Ur Specific [place] 1.015, Urine Protein 30 H, Urine Glucose (UA) 1000 H, Urine Ketones Negative, Urine Occult Blood 150 H, Urine Nitrite Negative, Urine Bilirubin Negative, Urine Urobilinogen Normal, Ur Leukocyte Esterase Negative, U rine RBC 0 SEEN, Urine WBC 0 SEEN, Ur Squamous Epith Cells 0 SEEN, Urine Bacteria 0 SEEN, Urine Mucus 0 SEEN 10/27/22 22:12: Acetone Level NEGATIVE 10/28/22 06:40: WBC 8.7, RBC 3.20 L, Hgb 10.1 L, Hct 32.1 L, MCV 100.3 H, MCH 31.6, MCHC 31.5 L, RDW Std Deviation 53.5 H, RDW Coeff of Luna 14.4, Plt Count 155, MPV 8.9, Immature Gran % (Auto) 0.500, Neut % (Auto) 75.1 H, Lymph % (Auto) 7.1 L, Isabela % (Auto) 12.2 H, Eos % (Auto) 4.2, Baso % (Auto) 0.9, Absolute Neuts (auto) 6.5, Absolute Lymphs (auto) 0.62 L, Nucleated RBC % 0 10/28/22 06:40: Sodium 130 L, Potassium 5.5 H, Chloride 100, Carbon Dioxide 25.0, Anion Gap 5, BUN 20 H, Creatinine 0.98, Estim Creat Clear Calc 73.24, Est GFR (MDRD) Af Amer 101, Est GFR (MDRD) Non-Af 84, BUN/Creatinine Ratio 20.5 H, Glucose 391 H, Calcium 8.8, Total Bilirubin 0.90, AST 29, ALT 31, Alkaline Phosphatase 85, Total Protein 6.2 L, Albumin 1.8 L, Globulin 4.4 H, Albumin/Globulin Ratio 0.4 L 10/28/22 06:40: Hemoglobin A1c 7.4 H 10/28/22 06:40: Vitamin B12 1847 H 10/28/22 06:40: Folate 6.20 10/28/22 06:40: Lactate Dehydrogenase 264 H 10/28/22 06:40: Hep Bs Antibody Non-Reactive, Hepatitis C Antibody Non-Reactive 10/28/22 07:26: POC Glucose 382 H 10/28/22 08:23: Ammonia 87.0 H 10/28/22 11:23: POC Glucose 408 H 10/28/22 12:35: Sodium 130 L, Potassium 5.5 H, Chloride 100, Carbon Dioxide 27.0, Anion Gap 3 L, BUN 19 H, Creatinine 1.11, Estim Creat Clear Calc 64.66, Est GFR (MDRD) Af Amer 87, Est GFR (MDRD) Non-Af 72, BUN/Creatinine Ratio 17.1, Glucose 375 H, Calcium 8.8 10/28/22 12:35: Iron 33 L, TIBC 283, Iron Saturation 11.7 L, Ferritin 38 10/28/22 14:00: Fluid Glucose 391 H, Fluid Total Protein 0.7, Fluid LDH 61 10/28/22 14:00: Fluid WBC 0.200, Fluid Tot Cell Count 0.307, Fld Polynuclear WBCs # 0.025, Fld Polynuclear WBCs % 12.5, Fluid Mononuclear WBCs 0.175, Fld Mononuclear WBCs % 87.5 Radiology Impression Abdomen/Pelvis CT 10/27/22 20:05 IMPRESSION: 1. Cirrhosis and sequela of portal hypertension as above. 2. Partial thrombosis of the portal vein. 3. Mild bowel wall thickening, nonspecific in the setting of cirrhosis and ascites, cannot exclude enterocolitis. 4. Please refer to the CT chest from the same date for additional findings. Electronically Signed: Vazquez Roger MD at 22:54 EDT , Chest CTA 10/27/22 21:36 IMPRESSION: 1. Evaluation limited due to motion. 2. No pulmonary embolism to the lobar level. 3. Large left pleural effusion. 4. Atelectasis of the left lower lobe and partial atelectasis of left upper lobe. 5. Scattered groundglass opacities in the right lung with associated bronchiectasis, differential includes chronic inflammatory changes, interstitial fibrotic changes or infection. 6. Cirrhosis and sequela of portal hypertension. Please refer to the CT abdomen pelvis from the same date for additional findings. Electronically Signed: Vazquez Roger MD at 22:48 EDT , Paracentesis Ultrasound 10/28/22 01:28 IMPRESSION: Ultrasound guided paracentesis. Electronically Signed: Calvin Mcclure MD at 14:54 EDT , Echocardiogram 10/28/22 08:22 Interpretation Summary Technically difficult study due to patient being uncooperative. The estimated ejection fraction is 65 %. Aortic valve is not well-visualized. By Doppler criteria there appears to be mild aortic stenosis. Ordering Physician: Katrin Mcclelland Referring Physician: ADALID WEST Performed By: Toña Little RCS Assessment & Plan Assessment/Plan (1) Portal vein thrombosis: (2) Ascites: (3) Cirrhosis of liver: (4) Pleural effusion: PLAN: Plan The differential diagnosis for abdominal pain with associated peripheral edema, fatigue, and shortness of breath is broad and includes heart failure, liver failure, renal failure, nephrotic syndrome, malnutrition, malabsorption, myx edema, lymphatic obstruction, and trauma.?The patient has specific risk factors for heart failure (obesity, diabetes mellitus, high alcohol consumption), liver disease (obesity, high alcohol consumption, hepatitis risk from travel or transfusion, and acetaminophen use), coagulopathy (bruises), and renal failure (diabetes mellitus) CMP demonstrates low total protein and low albumin, both of which are indicators of the synthetic capacity of hepactocytes.?The major contributors to the total protein measurement are globulin and albumin fractions?The globulin fraction includes enzymes, including clotting factors produced by hepatocytes, as well as immunoglobulins produced by plasma cells, and the albumin fraction consists exclusively of albumin produced by hepatocytes. Damage to hepatocytes that results in decreased synthetic capacity is thus revealed by decreased albumin and total proteins measurements in the setting of coagulopathy.?Hepatocyte integrity can be further assessed with the measurement of serum levels of hepatocellular enzymes aspartate aminotransferase (AST) and alanine aminotransferase (ALT), and should be considered in relation to biliary excretory function measured with alkaline phosphatase (ALP) and bilirubin levels. We will await MRI so we can see if there is any extension of portal vein thrombosis or any sign of hepatocellular carcinoma as a portal vein thrombosis can be a good indication of an underlying HCC. He has a splenorenal shunt that I am sure is contributing to a lot of his lethargy and weakness. I will put him on Xifaxan 550 mg twice a day or Flagyl 500 mg 3 times a day to prevent SBP. While he is here he can have 2 doses of lactulose per day at a 20 g dosage. He will need upper endoscopy to evaluate his upper GI tract and we will need to likely prolong beta-jermaine prophylaxis that he has upper endoscopy. Charges/Coding Visit Charges Inpatient E&M: 93161 Init Hosp L3
[2022-10-28 17:20] LABS: Bedside Glucose 330 mg/dL (74-106)
[2022-10-28 18:22] LABS: Auto B Fluid Analyzer BKGD Ct COUNTS W/IN LIMITS (W/IN LIMITS); Lymphocytes 7 %; Macrophages 16 %; Mesothelial Cells 43 %; Monocytes 31 %; Neutrophil (Segs) 3 %
[2022-10-28 18:24] LABS: Source- Body Fluid PERITONEAL FLUID
[2022-10-28 18:25] LABS: Appearance/Body Fluid CLEAR; Body Fluid QC Type(s) BF3Q; Color/Body Fluid LT YEL; Red Cell Count/Body Fluid 209 /mm3
[2022-10-28 23:11] LABS: Bedside Glucose 224 mg/dL (74-106)
[2022-10-28 23:39] LABS: Partial Thromboplast Time 248.1 Seconds (24.1-36.2)
[2022-10-29] VITALS (16 sets, daily range): BP systolic 109–132; BP diastolic 50–71; PULSE 65–88; RESP 12–22; TEMP 36.2–37.1; O2SAT 92–95; BMI 38.0
[2022-10-29 04:07] LABS: AFP, Tumor Marker 2.2 ng/mL (0.0-8.4)
[2022-10-29] MEDS: Levothyroxine 50 MCG Tablet PO (06:45)
[2022-10-29] MEDS: Insulin Lispro 100 UNIT/ML INSULN.PEN SC ×3 (06:46→21:15)
[2022-10-29 07:10] LABS: Bedside Glucose 230 mg/dL (74-106)
--- NOTE | 2022-10-29 08:50 | RAD_ITS ---
STUDY: X-RAY CHEST REASON FOR EXAM: Male, 57 years old. Effusion TECHNIQUE: Single AP portable view of the chest. COMPARISON: None. FINDINGS: EKG electrodes are seen. Large left pleural effusion with left basilar infiltration and/or atelectasis. Mild increased markings in the right lung as well. Normal size heart. Normal mediastinum and rita. Normal visualized pulmonary arteries. Normal visualized aortic arch and descending thoracic aorta. Normal visualized thoracic spine. Normal visualized ribs, clavicles, and shoulders. There is no demonstrated abnormality of the visualized soft tissue structures of the upper abdomen. RAD/Chest 1 View (Portable) IMPRESSION: Large left pleural effusion with left basilar atelectasis and/or infiltrate. Patchy areas of increased markings are also seen in the right hemithorax. Electronically Signed: Calvin Mcclure MD at 9:32 EDT ,
[2022-10-29 09:21] LABS: Absolute Lymphocyte Count 1.08 X10^3/uL (0.83-4.51); Absolute Neutrophil Count 6.9 X10^3/uL (2.0-7.7); Basophil# 0.09 X10^3/uL; Basophil% 0.9 % (0-1); Eosinophils% 8.1 % (0-5); Hematocrit 34.2 % (40-54); Hemoglobin 10.6 g/dL (13.0-16.5); Lymphocyte # 1.08 X10^3/ul (0.83-4.51); Mean Corpuscular Hgb 31.5 pg (27.0-32.0); Mean Corpuscular Volume 101.8 fL (80-94); Mean Platelet Vol. 8.9 fl (6.2-12.0); Monocyte# 0.89 X10^3/uL; Monocyte% 9.1 % (0-10); NRBC Flagged by Analyzer 0 % (0-5); Neutrophil # 6.91 X10^3/uL (2.7-7.7); Neutrophil % 70.4 % (47-70); Platelet Count 185 K/mm3 (150-450); RBC Distribution Width SD 52.6 fl (35.1-43.9); Red Blood Count 3.36 M/mm3 (4.6-6.2); White Blood Count 9.8 K/mm3 (4.4-11.0)
[2022-10-29] MEDS: Ceftriaxone 1 GM/50 ML BAG IV (09:25)
[2022-10-29 09:30] LABS: Partial Thromboplast Time 81.7 Seconds (24.1-36.2)
[2022-10-29 10:04] LABS: ALB/GLOB Ratio 0.4 RATIO (0.9-2.4); AST(SGOT) 28 U/L (15-37); Alanine Aminotransfer ALT/SGPT 30 U/L (16-61); Albumin, Serum 1.7 g/dL (3.2-5.0); Alkaline Phosphatase 76 U/L (45-117); Anion Gap 3 (5-15); BUN 21 mg/dL (7-18); BUN/Creat Ratio 21.3 RATIO (10-20); Calcium,Total 8.6 mg/dL (8.5-10.1); Chloride 103 mmol/L (98-107); Creatinine, Serum 0.99 mg/dL (0.70-1.30); EST Glomerular Filtration Rate 82 mL/min (>60); Est Glom Filt Rate - Afr Amer 100 mL/min (>60); Globulin 4.1 g/dL (2.2-4.2); Glucose 220 mg/dL (74-106); Magnesium 1.7 mg/dL (1.6-2.6); Phosphorus 3.9 mg/dL (2.5-4.9); Potassium 4.3 mmol/L (3.5-5.1); Protein, Total 5.8 g/dL (6.4-8.2); Sodium Level 133 mmol/L (136-145); Thyroid Stim Hormone (TSH) 3.32 uIU/mL (0.358-3.74)
--- NOTE | 2022-10-29 12:43 | OP.EGD_ITS ---
Patient Name: Isaac Shelley Procedure Date: 10/29/2022 12:14 PM Date of : 1965 Age: 57 Procedure: Upper GI endoscopy Indications: Iron deficiency anemia, Melena Providers: Carrington Cartwright DO Medicines: Monitored Anesthesia Care Patient Profile: This is a 57 year old male. Refer to note in patient chart for documentation of history and physical. Patient has symptoms of acute epigastric abdominal pain. Complications: No immediate complications. Procedure: Pre-Anesthesia Assessment: - Prior to the procedure, a History and Physical was performed, and patient medications and allergies were reviewed. The risks and benefits of the procedure and the sedation options and risks were discussed with the patient. All questions were answered and informed consent was obtained. Patient identification and proposed procedure were verified by the physician in the pre-procedure area. Mental Status Examination: alert and oriented. Airway Examination: normal oropharyngeal airway and neck mobility. Respiratory Examination: clear to auscultation. CV Examination: normal. Prophylactic Antibiotics: The patient does not require prophylactic antibiotics. Prior Anticoagulants: The patient has taken no previous anticoagulant or antiplatelet agents. ASA Grade Assessment: IV - A patient with severe systemic disease that is a constant threat to life. After reviewing the risks and benefits, the patient was deemed in satisfactory condition to undergo the procedure. The anesthesia plan was to use monitored anesthesia care (MAC). Immediately prior to administration of medications, the patient was re-assessed for adequacy to receive sedatives. The heart rate, respiratory rate, oxygen saturations, blood pressure, adequacy of pulmonary ventilation, and response to care were monitored throughout the procedure. The physical status of the patient was re-assessed after the procedure. After obtaining informed consent, the endoscope was passed under direct vision. Throughout the procedure, the patient's blood pressure, pulse, and oxygen saturations were monitored continuously. The gastroscope was introduced through the mouth, and advanced to the second part of duodenum. The upper GI endoscopy was accomplished without difficulty. The patient tolerated the procedure well. Scope In: 12:27:12 PM Scope Out: 12:34:41 PM Total Procedure Duration Time 0 hours 7 minutes 29 seconds Findings: No gross lesions were noted in the entire esophagus. Severe portal hypertensive gastropathy was found in the entire examined stomach. Biopsies were taken with a cold forceps for histology. Verification of patient identification for the specimen was done. Estimated blood loss was minimal. Many oozing cratered duodenal ulcers with a visible vessel were found in the duodenal bulb, in the first portion of the duodenum and in the second portion of the duodenum. The largest lesion was 10 mm in largest dimension. Area was successfully injected with 10 mL of a 1:10,000 solution of epinephrine for drug delivery. Estimated blood loss was minimal. Coagulation for hemostasis using heater probe was successful. Estimated blood loss was minimal. Impression: - No gross lesions in esophagus. - Portal hypertensive gastropathy. Biopsied. - Multiple oozing duodenal ulcers with a visible vessel. Injected. Treated with a heater probe. Recommendation: - [facility]. - Give Protonix (pantoprazole): initiate therapy with 80 mg IV bolus, then 8 mg/hr IV by continuous infusion. - Continue present medications. Procedure Code(s): --- Professional --- 11826, 59, Esophagogastroduodenoscopy, flexible, transoral; with control of bleeding, any method 76649, 59, Esophagogastroduodenoscopy, flexible, transoral; with directed submucosal injection(s), any substance 11202, 51, Esophagogastroduodenoscopy, flexible, transoral; with biopsy, single or multiple CPT copyright 2017 [employer]. All rights reserved. The codes documented in this report are preliminary and upon rewrite editor review may be revised to meet current compliance requirements. Carrington Cartwright DO 10/29/2022 12:42:48 PM This report has been signed electronically. Number of Addenda: 0 Note Initiated On: 10/29/2022 12:14 PM
--- NOTE | 2022-10-29 12:43 | OP.CCLET_ITS ---
10/29/2022 Xochitl Eid Do Re : Upper GI endoscopy procedure for Isaac Shelley Dear Dr. Eid This procedure was performed on October. My impressions and recommendations are as follows: Impressions : - No gross lesions in esophagus. - Portal hypertensive gastropathy. Biopsied. - Multiple oozing duodenal ulcers with a visible vessel. Injected. Treated with a heater probe. Recommendations : - [facility]. - Give Protonix (pantoprazole): initiate therapy with 80 mg IV bolus, then 8 mg/hr IV by continuous infusion. - Continue present medications. My findings are described in the full procedure note, which is enclosed. If I can be of further assistance, please feel free to contact me at . Sincerely, Carrington Cartwright, 10/29/2022 12:42:48 PM This report has been signed electronically.
[2022-10-29 13:21] LABS: LDH 286 U/L (87-241)
[2022-10-29] MEDS: 0.9% Saline Lock 10 ML Syringe IV ×3 (14:44→17:02)
--- NOTE | 2022-10-29 15:24 | PN.HOSP_ITS ---
Reason for Visit Reason for Visit: Swelling/shortness of breath Subjective Subjective Patient disgruntled about still having to be in the hospital. I did discuss with him that he does not have to stay although he would have to sign out AGAINST MEDICAL ADVICE at this point. He states he cannot do that because he would get in trouble from his . She is at the bedside during our conversation. I discussed recommendations for ongoing care and he is agreeable to staying at this time but fairly disgruntled about having to stay. We discussed the severity of his liver disease, his portal vein thrombus and need for anticoagulation, and overall prognosis being poor without ongoing care. I did discuss with him the goal right now is to optimize things is much as possible before discharging him and having him follow-up with gastroenterology as an outpatient for ongoing care and follow-up testing including possible evaluation at a tertiary center for liver transplant in the future. I did tell him that everything we are doing is for his benefit however its our job to make recommendations in his decision what to do with his body. He was argumentative about being on oxygen to go down for his EGD. We tested his room sat and he was 86% on room air. He was trying to insist this is okay but I discussed with him normal is greater than 92 typically and he would qualify for oxygen at home at this point. He then was agreeable and went to EGD. Nursing and his were at bedside for the conversation. Objective Data Objective Data Vital Signs: Vital Signs Temp Pulse Resp BP Pulse Ox O2 Del Method O2 Flow Rate 97.2 F L 66 18 113/55 L 94 Nasal Cannula 5 10/29/22 14:35 10/29/22 14:35 10/29/22 14:35 10/29/22 14:35 10/29/22 14:35 10/29/22 14:35 10/29/22 14:35 Oxygen Flow Rate (L/min) [4] 5 Oxygen Flow Rate (L/min) [3] 5 Oxygen Flow Rate (L/min) [2] 5 Oxygen Flow Rate (L/min) [1 ( 5 Initial Baseline)] Oxygen Flow Rate (L/min) 5 Oxygen Delivery Method [4] Nasal Cannula Oxygen Delivery Method [3] Nasal Cannula Oxygen Delivery Method [2] Nasal Cannula Oxygen Delivery Method [1 ( Nasal Cannula Initial Baseline)] Oxygen Delivery Method Nasal Cannula Weight: 107 kg Body Mass Index (BMI) 38.0 Intake & Output: Intake and Output for Last 24 Hours 10/27/22 10/28/22 10/29/22 23:59 23:59 23:59 Intake Total 826.82 / 826.82 175.78 / 175.78 Output Total 3250 / 3250 Balance -2423.18 / -2423.18 175.78 / 175.78 Lab / Micro Data Result Diagrams: 10/29/22 08:40 10/29/22 08:40 Labs: Laboratory Results - last 24 hr 10/28/22 06:40: Tumor Marker AFP 2.2 10/28/22 14:00: Fluid Glucose 391 H, Fluid Total Protein 0.7, Fluid LDH 61 10/28/22 14:00: Fluid Source PERITONEAL FLUID, Fluid Color LT YEL, Fluid Appearance CLEAR, Fluid WBC 0.200, Fluid RBC 209, Fluid Tot Cell Count 0.307, Fld Polynuclear WBCs # 0.025, Fld Polynuclear WBCs % 12.5, Fluid Mononuclear WBCs 0.175, Fld Mononuclear WBCs % 87.5, Fluid Neutrophils 3, Fluid Lymphocytes 7, Fluid Monocytes 31, Fluid Macrophages 16, Fld Mesothelial Cells 43, Fl Pathologist Comment May follow, Fluid Comment 2 SEE COMMENT 10/28/22 16:52: POC Glucose 330 H 10/28/22 21:08: POC Glucose 224 H 10/28/22 23:15: APTT 248.1 H* 10/29/22 06:43: POC Glucose 230 H 10/29/22 08:40: WBC 9.8, RBC 3.36 L, Hgb 10.6 L, Hct 34.2 L, MCV 101.8 H, MCH 31.5, MCHC 31.0 L, RDW Std Deviation 52.6 H, RDW Coeff of Luna 14.0, Plt Count 185, MPV 8.9, Immature Gran % (Auto) 0.500, Neut % (Auto) 70.4 H, Lymph % (Auto) 11.0 L, Elliott % (Auto) 9.1, Eos % (Auto) 8.1 H, Baso % (Auto) 0.9, Absolute Neuts (auto) 6.9, Absolute Lymphs (auto) 1.08, Nucleated RBC % 0 10/29/22 08:40: Sodium 133 L, Potassium 4.3, Chloride 103, Carbon Dioxide 27.0, Anion Gap 3 L, BUN 21 H, Creatinine 0.99, Estim Creat Clear Calc 72.50, Est GFR (MDRD) Af Amer 100, Est GFR (MDRD) Non-Af 82, BUN/Creatinine Ratio 21.3 H, Glucose 220 H, Calcium 8.6, Phosphorus 3.9, Magnesium 1.7, Total Bilirubin 0.70, AST 28, ALT 30, Alkaline Phosphatase 76, Total Protein 5.8 L, Albumin 1.7 L, Globulin 4.1, Albumin/Globulin Ratio 0.4 L, TSH 3.32 10/29/22 08:40: APTT 81.7 H 10/29/22 08:40: Lactate Dehydrogenase 286 H Micro: Microbiology 10/28/22 14:00 Fluid - Paracentesis (Abd) Gram Stain - Final 10/28/22 14:00 Fluid - Paracentesis (Abd) Body Fluid Culture - Preliminary No growth-Final to follow Radiography Diagnostic Testing: Radiology Impression Abdomen MRI 10/28/22 13:06 IMPRESSION: Examination is significantly degraded by motion artifact. Left pleural effusion with left lower lobe atelectasis or pneumonia. Cirrhosis and portal venous hypertension. Portal vein thrombosis better demonstrated by CT with contrast. Ascites. Cholelithiasis. Consider repeat MRI evaluation without and with contrast, possibly with sedation. Electronically Signed: Rafael Gregorio MD at 17:49 EDT , Chest X-Ray 10/29/22 08:50 IMPRESSION: Large left pleural effusion with left basilar atelectasis and/or infiltrate. Patchy areas of increased markings are also seen in the right hemithorax. Electronically Signed: Calvin Mcclure MD at 9:32 EDT , Physical Exam Const alert, oriented x3 and no apparent distress Constitutional Narrative: Upper middle-aged white male, lying in bed, appears much older than stated age, at bedside, appears comfortable and nontoxic at this time however does look chronically ill, patient is somewhat argumentative and disagreeable today however did cooperate with exam HEENT head/scalp atraumatic, moist oral mucous membranes and oropharynx normal HEENT Narrative: Dentition is poor, Mallampati is 2 Eyes PERRL, EOMs intact bilaterally and conjunctivae normal Eyes Narrative: No scleral icterus Neck no lymphadenopathy, supple and no carotid bruits Neck Narrative: Cardiac murmur that radiates to bilateral carotid arteries, trachea midline Resp normal respiratory effort, no retractions, no use of accessory muscles and No clear to auscultation bilaterally Resp Narrative: Breath signs very diminished on the left side, few crackles on the right side with inspiration, scattered end expiratory wheeze Auscultation: rales and wheezes; Negative for rhonchi Cardio regular rate, regular rhythm, S1 normal heart sound, no rub, no gallops and no clicks; Negative for S2 normal heart sound or no murmurs Cardio Narrative: 4 out of 6 systolic murmur with a soft S2 radiates to bilateral carotid arteries loudest at right upper sternal border however here diffusely GI soft to palpation GI Narrative: Protuberant abdomen, no significant fluid wave, no organomegaly noted on exam however exam limited secondary to abdominal size, bowel sounds are normal Extremity Extremity Narrative: 3+ bilateral doughy pitting edema from feet up to thighs with some anasarca noted in anterior abdomen, no cyanosis or clubbing Skin No no rashes or lesions noted, no wounds, skin turgor normal, no jaundice, no petechiae and no mottling Skin Narrative: telangiectasias noted all over chest and arms Neuro oriented x3, CN's II-XII intact bilaterally, moves all extremities, no focal motor deficits and no sensory deficits noted Neuro Narrative: Generalized weakness Speech: speech normal Psych Psych Narrative: Patient argumentative somewhat today and disgruntled about having to stay in the hospital further Assessment & Plan Assessment/Plan (1) Acute respiratory failure with hypoxia: (2) Pleural effusion: (3) Ascites: (4) Cirrhosis of liver: (5) Hyperkalemia: (6) Hyperglycemia: (7) Anasarca: (8) Macrocytic anemia: (9) Portal vein thrombosis: (10) Hyponatremia: (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: (12) Aortic stenosis: (13) Portal hypertensive gastropathy: (14) Duodenal ulcer: PLAN: Plan Acute hypoxic respiratory failure secondary to large left pleural effusion -Patient is not oxygen dependent at baseline -Sats at 71% on presentation and patient with tachypnea, tachycardia, and elevated blood pressure related to respiratory distress -Oxygen saturations improved and placed on 6 L nasal cannula and now has been we aned to 5 L nasal cannula with oxygen saturations between 91 and 94% -Wean oxygen as able -On room air patient was 86% at rest -Will check ambulatory pulse ox prior to discharge -Effusion has not improved significantly with diuresis -Continue as needed albuterol -Thoracentesis ordered for tomorrow I documented in error that this was going to be done yesterday and it was a paracentesis that was performed -Labs added to calculate lights criteria -Continue Bumex but increase to 2 mg twice daily Large left pleural effusion -Suspect related to liver disease -Echocardiogram was unremarkable for any acute findings and EF is normal -Thoracentesis to be done tomorrow in error I documented that it was done yesterday however it was a paracentesis that was performed -Lab for lites criteria were ordered Anasarca -Continue diuretics but increase dose as noted above -Related to liver disease -Continue to monitor chemistries Severe portal hypertensive gastropathy -Continue nadolol -Outpatient GI follow-up Duodenal ulcers -EGD done 10/29/2022 with need for chronic anticoagulation and liver disease -Demonstrated severe portal hypertensive gastropathy and multiple oozing duodenal ulcers that were treated with heater probe, visible vessels were noted and injected -Protonix drip initiated we will continue -Biopsies taken-pending await results -With cirrhosis and evidence of bleeding on his EGD will use ceftriaxone as SBP prophylaxis Portal vein thrombus -Anticipate related to cirrhosis -JAK2, [id number]/[id number] ordered by admitting physician--> pending -Lovenox given emergency department -Continue heparin drip for now as patient will require thoracentesis tomorrow -transition to orals once procedures completed Liver cirrhosis/Budd-Chiari syndrome -Etiology is unclear -Patient has never been a heavy user of alcohol however has consumed previously -Hepatitis antibodies are negative -AFP is pending -Ammonia was elevated and patient is on lactulose was having multiple bowel movements so we will decrease from twice daily to daily -Continue nadolol -Status post paracentesis yesterday for just over 3 L -I do anticipate patient may need frequent recurrent paracenteses -MELD score was 19.4/Child-Albarran score was 9-class B -MRI of liver was performed and does show abnormality but exam was degraded by motion artifact -Large left pleural effusion with lower lobe atelectasis, cirrhosis and portal vein hypertension, improved appearance of portal vein thrombosis, ascites, cholelithiasis -Continue thiamine and folate -GI following-appreciate input-discussed with Dr. Cartwright Aortic stenosis -Patient with significant murmur on exam however was reported as mild -We will refer to cardiology at discharge for ongoing follow-up -Discussed with patient -Echo was somewhat limited as patient was overall uncooperative with exam Hyponatremia -Not severe and I suspect this may be chronic however baseline lab is unclear at this time -Likely related to liver disease and volume status -Diuretics as above -Repeat BMP this afternoon and then again in the a.m. Macrocytic anemia -Baseline hemoglobin unknown but hemoglobin is stable at this time -Oozing duodenal ulcers noted on EGD and they were addressed -B12 and folate are normal -Monitor CBC DM-2 with hyperglycemia -Hold metformin -Hold Januvia -A1c was only 7.4 -Patient was markedly hyperglycemic on presentation with a blood sugar greater than 400 -Continue Lantus but increase to 15 units twice daily -Sliding scale -Accu-Cheks Hyperkalemia -Resolved -Hold lisinopril -Continue diuretic -Repeat BMP in a.m. Hypertension -Blood pressure elevated -Nadolol added -Hold lisinopril due to hyperkalemia -As needed hydralazine Hypothyroidism -Continue levothyroxine -TSH is within normal limits DVT prophylaxis -Full anticoagulation with heparin drip CODE STATUS -Full code Charges/Coding Visit Charges Inpatient E&M: 54541 [facility] Hosp L3
[2022-10-29 15:25] LABS: Allen Test Positive; Base Excess 2 mmol/L (-2 to +2); Bicarbonate 29.5 mmol/L (22-26); Blood Gas Specimen Type ART; O2 Delivery Device Cannula; PO2 74 mmHG (75-100); SITE R Radial; SO2 91 % (95-99); Total Carbon Dioxide 32 mmol/L; pCO2 69.1 mmHg (35-45); pH 7.24 (7.35-7.45)
--- NOTE | 2022-10-29 15:47 | PCM.HOSP.N ---
Hospitalist Note Patient returned back from his EGD and was fairly somnolent ongoing. We obtained a stat ABG. ABG demonstrated a pH of 7.24/PCO2 of 69.1/PO2 of 74 and an oxygen saturation of 91% on 5 L nasal cannula. We will start BiPAP stat and repeat an ABG in 1.5 hours. His hypercapnia should improve once sedation wears off however I suspect this may take a little longer with his liver disease. ABG is to be reported to me in 1.5 hours.
[2022-10-29] MEDS: Bumetanide 1 MG/4 ML Vial 2 MG IV (17:02)
[2022-10-29 17:21] LABS: Bedside Glucose 203 mg/dL (74-106)
--- NOTE | 2022-10-29 17:40 | CPS ---
VBG results sent to Dr Mcclelland via backline.
[2022-10-29 17:41] LABS: Blood Gas Specimen Type VEN; O2 Delivery Device BiPAP; PEEP 18; PS 8; RR 12; SITE L Radial; VBG BASE EXCESS 0 mmol/L (-1.0-3.5); VBG Bicarbonate 27 mmol/L (22-26); VBG PO2 48 mmHg (25-40); VBG SO2 76 % (50-70); VBG TCO2 29 mmol/L (23-33); VBG pCO2 61.3 mmHg (41-51); VBG pH 7.26 (7.32-7.42)
[2022-10-29] MEDS: HEPARIN/D5w 25,000 UNITS 25,000 UNITS/250 ML IV.SOLN. 12 UNITS CONT INF (19:03)
[2022-10-29 19:10] LABS: Allen Test Negative; Base Excess 0 mmol/L (-2 to +2); Bicarbonate 26.7 mmol/L (22-26); Blood Gas Specimen Type ART; FI02 50; O2 Delivery Device BiPAP; PEEP 8; PO2 74 mmHG (75-100); PS 10; RR 12; SITE R Radial; SO2 92 % (95-99); Total Carbon Dioxide 29 mmol/L; pCO2 57.9 mmHg (35-45); pH 7.27 (7.35-7.45)
[2022-10-29] MEDS: Insulin Glargine-YFGN 100 UNIT/ML Pen 15 UNIT SC (21:15)
[2022-10-29 21:36] LABS: Bedside Glucose 202 mg/dL (74-106)
[2022-10-29 22:17] LABS: Partial Thromboplast Time 88.6 Seconds (24.1-36.2)
[2022-10-30] VITALS (14 sets, daily range): BP systolic 99–125; BP diastolic 48–75; PULSE 62–89; RESP 12–20; TEMP 36.6–37.8; O2SAT 76–100; BMI 38.2
--- NOTE | 2022-10-30 | FLU_PTH ---
PATIENT: SEBAS YI II LOC: [facility] U#:[id number] AGE/SX: 57/M ROOM: [facility] [place] RE10/28/[address]: Dr. Katrin Mcclelland DO : 1965 BED: 1 DIS: 10/31/2022 SPEC #: [id number] RECD: 10/30/22 14:39 STATUS: KARAN REQ #: [id number] SYDNEY: 10/30/22 00:[address]: Katrin Mcclelland DEPT: CYTOLOGY RECD BY: Juan Huddleston ENTERED: 11/02/22 10:04 SP TYPE: Fluid OTHR DR: MD Dr. Xochitl June DO Dr. Rahsaan Friend, Tissues: THORACIC FLUID Procedures: Special Stain Group II Surgery Specimen Level IV Cytospin Fluid HEADER OPERATION: Ultrasound-guided left thoracentesis PRE-OP DIAGNOSIS: Left pleural effusion TISSUE SUBMITTED: Thoracentesis fluid for cytology DIAGNOSIS CYTOLOGY Thoracentesis fluid for cytology (cytospin and cell block): Negative for malignant cells. AM:partha 11/03/2022 CYTOLOGY STUDY Slides are reviewed. CYTOLOGY GROSS Received is 70 ml of red cloudy fluid labeled with the patient's name and and designated per the requisition as thoracentesis. Submitted for cytology preparation including cell block. / partha 11/02/2022 TC:5 CPT: 50681, 04225
[2022-10-30 05:10] LABS: Absolute Lymphocyte Count 1.29 X10^3/uL (0.83-4.51); Basophil# 0.08 X10^3/uL; Eosinophil# 0.52 X10^3/uL; Eosinophils% 6.7 % (0-5); Hemoglobin 9.9 g/dL (13.0-16.5); Lymphocyte # 1.29 X10^3/ul (0.83-4.51); Lymphocyte % 16.6 % (19-41); Mean Corp Hgb Conc 30.9 g/dL (32-36); Mean Corpuscular Hgb 31.3 pg (27.0-32.0); Mean Corpuscular Volume 101.3 fL (80-94); Mean Platelet Vol. 8.4 fl (6.2-12.0); Monocyte# 0.88 X10^3/uL; Monocyte% 11.4 % (0-10); NRBC Flagged by Analyzer 0 % (0-5); Neutrophil # 4.96 X10^3/uL (2.7-7.7); Platelet Count 162 K/mm3 (150-450); RBC Distribution Width CV 13.7 % (11.6-14.6); RBC Distribution Width SD 51.1 fl (35.1-43.9); Red Blood Count 3.16 M/mm3 (4.6-6.2); White Blood Count 7.8 K/mm3 (4.4-11.0)
[2022-10-30 05:27] LABS: ALB/GLOB Ratio 0.4 RATIO (0.9-2.4); AST(SGOT) 26 U/L (15-37); Alanine Aminotransfer ALT/SGPT 26 U/L (16-61); Albumin, Serum 1.5 g/dL (3.2-5.0); Alkaline Phosphatase 69 U/L (45-117); Anion Gap 4 (5-15); BUN 25 mg/dL (7-18); BUN/Creat Ratio 17.5 RATIO (10-20); Calcium,Total 7.9 mg/dL (8.5-10.1); Chloride 105 mmol/L (98-107); Creatinine, Serum 1.43 mg/dL (0.70-1.30); EST Glomerular Filtration Rate 54 mL/min (>60); Est Glom Filt Rate - Afr Amer 65 mL/min (>60); Estimated Creatinine Clearance 50.19 ml/min; Globulin 3.6 g/dL (2.2-4.2); Glucose 123 mg/dL (74-106); Magnesium 1.5 mg/dL (1.6-2.6); Phosphorus 5.2 mg/dL (2.5-4.9); Potassium 4.9 mmol/L (3.5-5.1); Protein, Total 5.1 g/dL (6.4-8.2); Sodium Level 137 mmol/L (136-145)
[2022-10-30 05:31] LABS: Partial Thromboplast Time 131.8 Seconds (24.1-36.2)
[2022-10-30 05:36] LABS: Allen Test Positive; Base Excess 1 mmol/L (-2 to +2); Bicarbonate 26.9 mmol/L (22-26); Blood Gas Specimen Type ART; FI02 50; O2 Delivery Device BiPAP; PEEP 8; PO2 71 mmHG (75-100); PS 10; RR 12; SITE R Radial; SO2 93 % (95-99); Total Carbon Dioxide 29 mmol/L; pCO2 50.3 mmHg (35-45); pH 7.34 (7.35-7.45)
[2022-10-30] MEDS: Sucralfate 1 GM Tablet PO ×3 (07:05→16:01)
[2022-10-30] MEDS: Levothyroxine 50 MCG Tablet PO (07:05)
[2022-10-30 07:26] LABS: Bedside Glucose 121 mg/dL (74-106)
[2022-10-30] MEDS: Folic Acid 1 MG Tablet PO (09:36)
[2022-10-30] MEDS: Thiamine Hydrochloride 100 MG Tablet PO (09:36)
[2022-10-30] MEDS: LINAGLIPTIN 5 MG TABLET PO (09:37)
[2022-10-30] MEDS: Lactulose 20 GM/30 ML UDC PO (09:37)
[2022-10-30] MEDS: Nadolol 20 MG Tablet 40 MG PO (09:43)
[2022-10-30] MEDS: Insulin Glargine-YFGN 100 UNIT/ML Pen 15 UNIT SC ×2 (10:01→22:47)
[2022-10-30] MEDS: Insulin Lispro 100 UNIT/ML INSULN.PEN SC ×3 (11:52→22:47)
[2022-10-30] MEDS: Ceftriaxone 1 GM/50 ML BAG IV (12:03)
[2022-10-30 12:26] LABS: Bedside Glucose 305 mg/dL (74-106)
--- NOTE | 2022-10-30 12:50 | PN.HOSP_ITS ---
Reason for Visit Reason for Visit: Shortness of breath/swelling Subjective Subjective Patient's mental status is back to baseline this morning. He is still somewhat argumentative however seems to be accepting of staying today. He did state he is leaving tomorrow no matter what. I told him that he may not be medically ready to go and I may not be able to discharge him and he would have to sign out AGAINST MEDICAL ADVICE at that time. I did review the findings on the EGD with severe ulcerative disease in his duodenum and did go over the overall plan of care. We discussed his thoracentesis which will be happening today at 130. He was agreeable to having this performed. Objective Data Objective Data Vital Signs: Vital Signs Temp Pulse Resp BP Pulse Ox O2 Del Method O2 Flow Rate 98.0 F 74 18 122/70 H 95 Nasal Cannula 5 10/30/22 12:04 10/30/22 12:04 10/30/22 12:04 10/30/22 12:04 10/30/22 12:04 10/30/22 12:04 10/30/22 12:04 FiO2 50 10/30/22 00:11 Oxygen Flow Rate (L/min) [4] 5 Oxygen Flow Rate (L/min) [3] 5 Oxygen Flow Rate (L/min) [2] 5 Oxygen Flow Rate (L/min) [1 ( 5 Initial Baseline)] Oxygen Flow Rate (L/min) 5 Oxygen Delivery Method [4] Nasal Cannula Oxygen Delivery Method [3] Nasal Cannula Oxygen Delivery Method [2] Nasal Cannula Oxygen Delivery Method [1 ( Nasal Cannula Initial Baseline)] Oxygen Delivery Method Nasal Cannula Weight: 107.6 kg Body Mass Index (BMI) 38.2 Intake & Output: Intake and Output for Last 24 Hours 10/28/22 10/29/22 10/30/22 23:59 23:59 23:59 Intake Total 826.82 / 826.82 334.18 / 334.18 891.90 / 891.90 Output Total 3250 / 3250 400 / 400 Balance -2423.18 / -2423.18 334.18 / 334.18 491.90 / 491.90 Lab / Micro Data Result Diagrams: 10/30/22 05:00 10/30/22 05:00 Labs: Laboratory Results - last 24 hr 10/29/22 08:40: Lactate Dehydrogenase 286 H 10/29/22 16:06: POC Glucose 203 H 10/29/22 21:13: POC Glucose 202 H 10/29/22 21:30: APTT 88.6 H 10/30/22 05:00: WBC 7.8, RBC 3.16 L, Hgb 9.9 L, Hct 32.0 L, MCV 101.3 H, MCH 31.3, MCHC 30.9 L, RDW Std Deviation 51.1 H, RDW Coeff of Luna 13.7, Plt Count 162, MPV 8.4, Immature Gran % (Auto) 0.300, Neut % (Auto) 64.0, Lymph % (Auto) 16.6 L, [place] % (Auto) 11.4 H, Eos % (Auto) 6.7 H, Baso % (Auto) 1.0, Absolute Neuts (auto) 5.0, Absolute Lymphs (auto) 1.29, Nucleated RBC % 0 10/30/22 05:00: Sodium 137, Potassium 4.9, Chloride 105, Carbon Dioxide 28.0, Anion Gap 4 L, BUN 25 H, Creatinine 1.43 H, Estim Creat Clear Calc 50.19, Est GFR (MDRD) Af Amer 65, Est GFR (MDRD) Non-Af 54 L, BUN/Creatinine Ratio 17.5, Glucose 123 H, Calcium 7.9 L, Phosphorus 5.2 H, Magnesium 1.5 L, Total Bilirubin 0.50, AST 26, ALT 26, Alkaline Phosphatase 69, Total Protein 5.1 L, Albumin 1.5 L, Globulin 3.6, Albumin/Globulin Ratio 0.4 L 10/30/22 05:00: APTT 131.8 H* 10/30/22 07:03: POC Glucose 121 H 10/30/22 11:51: POC Glucose 305 H Micro: Microbiology 10/28/22 14:00 Fluid - Paracentesis (Abd) Gram Stain - Final 10/28/22 14:00 Fluid - Paracentesis (Abd) Body Fluid Culture - Preliminary No growth-Final to follow 10/28/22 14:00 Fluid - Paracentesis (Abd) Anaerobic Culture - Preliminary No growth in 48 hours. ABG Data ABG results: ABG 10/29/22 10/29/22 10/29/22 15:19 17:33 19:04 Specimen Type ART ESAU ART Sample Site R Radial L Radial R Radial pH 7.24 L 7.27 L Bicarbonate Actual 29.5 H 26.7 H Total CO2 32 29 Base Excess 2 0 O2 Saturation 91 L 92 L O2 % 50 ABG pCO2 69.1 H* 57.9 H ABG pO2 74 L 74 L José Miguel Test Positive Negative VBG pH 7.26 L VBG pO2 48 H VBG HCO3 27 H VBG Total CO2 29 VBG O2 Sat (Calc) 76 H VBG Base Excess 0 POC Mix VBG pCO2 Pt Tmp 61.3 H Respiration Rate 12 12 O2 Delivery Device Cannula BiPAP BiPAP Liter Flow 5.0 POC PEEP 18 8 POC Pressure Suppt 8 10 Crit Call To/Read Back Yes Blood Gas Notified Whom [facility]MY Clinical Comments bipap 18 r12 50% 10/30/22 05:30 Specimen Type ART Sample Site R Radial pH 7.34 L Bicarbonate Actual 26.9 H Total CO2 29 Base Excess 1 O2 Saturation 93 L O2 % 50 ABG pCO2 50.3 H ABG pO2 71 L José Miguel Test Positive VBG pH VBG pO2 VBG HCO3 VBG Total CO2 VBG O2 Sat (Calc) VBG Base Excess POC Mix VBG pCO2 Pt Tmp Respiration Rate 12 O2 Delivery Device BiPAP Liter Flow POC PEEP 8 POC Pressure Suppt 10 Crit Call To/Read Back Blood Gas Notified Whom Clinical Comments bipap 18/8 r12 50% Physical Exam Const alert, oriented x3 and no apparent distress Constitutional Narrative: Upper middle-aged white male, lying in bed, appears much older than stated age, at bedside, appears comfortable and nontoxic at this time however does look chronically ill, patient still disagreeable and somewhat argumentative however is a bit more accepting today HEENT head/scalp atraumatic, moist oral mucous membranes and oropharynx normal Head and Scalp: normocephalic Resp normal respiratory effort, no retractions, no use of accessory muscles and No cl ear to auscultation bilaterally Resp Narrative: Breath signs very diminished on the left side, few crackles on the right side with inspiration, scattered end expiratory wheeze Auscultation: rales and wheezes; Negative for rhonchi Cardio regular rate, regular rhythm, S1 normal heart sound, no rub, no gallops and no clicks; Negative for S2 normal heart sound or no murmurs Cardio Narrative: 4 out of 6 systolic murmur with a soft S2 radiates to bilateral carotid arteries loudest at right upper sternal border however here diffusely GI soft to palpation GI Narrative: Protuberant abdomen, no significant fluid wave, no organomegaly noted on exam however exam limited secondary to abdominal size, bowel sounds are normal Extremity Extremity Narrative: 3+ bilateral doughy pitting edema from feet up to thighs with some anasarca noted in anterior abdomen, no cyanosis or clubbing Skin No no rashes or lesions noted, no wounds, skin turgor normal, no jaundice, no petechiae and no mottling Skin Narrative: telangiectasias noted all over chest and arms Neuro oriented x3, moves all extremities, no focal motor deficits and no sensory deficits noted Neuro Narrative: Generalized weakness Speech: speech normal Psych Psych Narrative: Patient argumentative again today but not quite as much as yesterday Assessment & Plan Assessment/Plan (1) Acute respiratory failure with hypoxia: (2) Pleural effusion: (3) Ascites: (4) Cirrhosis of liver: (5) Hyperkalemia: (6) Hyperglycemia: (7) Anasarca: (8) Macrocytic anemia: (9) Portal vein thrombosis: (10) Hyponatremia: (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: (12) Aortic stenosis: (13) Portal hypertensive gastropathy: (14) Duodenal ulcer: (15) Hypomagnesemia: (16) Acute respiratory failure with hypoxia and hypercapnia: PLAN: Plan Acute hypoxic/hypercapnic respiratory failure secondary to large left pleural effusion/procedual sedation -Patient is not oxygen dependent at baseline -Hypercapnic component has resolved with BiPAP utilization overnight as per previous documentation -Sats at 71% on presentation and patient with tachypnea, tachycardia, and elevated blood pressure related to respiratory distress -Remained stable on 5 L with a sat of 85% -Wean oxygen as able -On room air patient was 86% at rest yesterday -Will check ambulatory pulse ox prior to discharge -Effusion has not improved significantly with diuresis therefore patient going for thoracentesis later today -Continue as needed albuterol -Thoracentesis ordered for tomorrow I documented in error that this was going to be done yesterday and it was a paracentesis that was performed -Labs added to calculate lights criteria -We will stop IV Bumex as serum creatinine is starting to trend up and transition to oral Bumex 1 mg twice daily with first dose starting this evening Large left pleural effusion -Suspect related to liver disease -Echocardiogram was unremarkable for any acute findings and EF is normal -Thoracentesis today at 130 -Fluid lab studies ordered Anasarca -Continue diuretics but with decreased dose secondary to serum creatinine rise today -Related to liver disease -Continue to monitor chemistries Severe portal hypertensive gastropathy -Continue nadolol -Outpatient GI follow-up Duodenal ulcers -EGD done 10/29/2022 with need for chronic anticoagulation and liver disease -Demonstrated severe portal hypertensive gastropathy and multiple oozing duodenal ulcers that were treated with heater probe, visible vessels were noted and injected -Slight drop in hemoglobin today -Protonix drip initiated we will continue for another 24 hours and then transition to oral Protonix 40 mg p.o. twice daily if okay with GI -Biopsies taken-pending await results -With cirrhosis and evidence of bleeding on his EGD will use ceftriaxone as SBP prophylaxis and if able to be discharged prior to completion of antibiotics will continue for total 7 days Portal vein thrombus -Anticipate related to cirrhosis -JAK2, [id number]/[id number] ordered by admitting physician--> pending -Lovenox given emergency department -Continue heparin drip for now as patient will require thoracentesis today and will transition to orals once okay with GI Liver cirrhosis/Budd-Chiari syndrome -Etiology is unclear -Patient has never been a heavy user of alcohol however has consumed previously--> suspect THURMAN -Hepatitis antibodies are negative -AFP is 0.2 -Continue lactulose 20 daily for goal bowel movement 2-3 daily -Continue nadolol -Status post paracentesis yesterday for just over 3 L -I do anticipate patient may need frequent recurrent paracenteses -MELD score was 19.4/Child-Albarran score was 9-class B -MRI of liver was performed and does show abnormality but exam was degraded by motion artifact -Large left pleural effusion with lower lobe atelectasis, cirrhosis and portal vein hypertension, improved appearance of portal vein thrombosis, ascites, cholelithiasis -Continue thiamine and folate -GI following-appreciate input-discussed with Dr. Gabbie QIU -Stop IV diuresis -We will transition to oral Lasix starting this evening with 1 mg Bumex twice daily Hypomagnesemia -2 g mag bolus -Repeat mag level in a.m. Aortic stenosis -Patient with significant murmur on exam however was reported as mild -We will refer to cardiology at discharge for ongoing follow-up -Discussed with patient -Echo was somewhat limited as patient was overall uncooperative with exam Hyponatremia -Resolved today with a sodium of 137 Macrocytic anemia -Overall relatively stable however slight drop today -Repeat CBC in a.m. -Oozing duodenal ulcers noted on EGD and they were addressed with intervention -B12 and folate are normal -Monitor CBC DM-2 with hyperglycemia -Hold metformin -Hold Januvia -A1c was only 7.4 -Patient was markedly hyperglycemic on presentation with a blood sugar greater than 400 -Continue Lantus 15 units twice daily -Blood sugars well controlled today with a fasting sugar this morning of 123 -Continue to monitor blood sugars -Sliding scale -Accu-Cheks Hyperkalemia -Resolved -Hold lisinopril -Continue diuretic -Repeat BMP in a.m. Hypertension -Blood pressure now on the lower side -Nadolol added--> but will decrease dose with borderline hypotension -Hold lisinopril due to hyperkalemia -As needed hydralazine Hypothyroidism -Continue levothyroxine -TSH is within normal limits DVT prophylaxis -Full anticoagulation with heparin drip until okay with GI to transition CODE STATUS -Full code Charges/Coding Visit Charges Inpatient E&M: 16695 Subs Hosp L2
--- NOTE | 2022-10-30 13:30 | US_ITS ---
PROCEDURE: ULTRASOUND GUIDED THORACENTESIS. DATE: October 30, 2022. INDICATION: Male, 57 years old. Left pleural effusion. PHYSICIAN: Calvin Mcclure M.D. PROCEDURE: The risks, benefits, and alternatives to the procedure were explained to the patient. The specific risks of bleeding, infection, and pneumothorax requiring chest tube insertion were discussed and accepted. Written informed consent was obtained. Ultrasonographic evaluation of the left lower pleural space was carried out. An adequate pocket was identified. The patient was placed in the sitting, upright position. The overlying skin was prepped and draped in sterile fashion. 1% lidocaine was administered subcutaneously for local anesthesia. Under ultrasound guidance, a 5 Mongolian thoracentesis needle/catheter system was advanced into the left posterior lower pleural fluid collection. Approximately 1790 mL of blood-tinged fluid was drained. The catheter was removed, and a sterile dressing was applied. A specimen was collected and sent to the laboratory for analysis, as requested by the referring clinician. The patient tolerated the procedure well. A chest x-ray was ordered. US/Thoracentesis W US IMPRESSION: Ultrasound-guided left thoracentesis. Electronically Signed: Calvin Mcclure MD at 15:10 EDT ,
[2022-10-30 14:09] LABS: Alpha Antitrypsin Serum 182 mg/dL (101-187); Anti-Centromere B Ab <0.2 AI (0.0-0.9); Anti-Chromatin <0.2 AI (0.0-0.9); Anti-Jo <0.2 AI (0.0-0.9); Anti-Scleroderma-70 AB <0.2 AI (0.0-0.9); Anti-dsDNA Ab <1 IU/mL (0-9); RNP Ab <0.2 AI (0.0-0.9); SJOGREN'S Anti-SS-A test < 0.2 AI (0.0-0.9); SJOGREN'S Anti-SS-B test < 0.2 AI (0.0-0.9); Smith Ab <0.2 AI (0.0-0.9)
[2022-10-30] MEDS: Lidocaine 2% (20 ml mdv) 20 ML Vial INFILT (14:10)
--- NOTE | 2022-10-30 14:25 | RAD_ITS ---
STUDY: X-RAY CHEST REASON FOR EXAM: Male, 57 years old. Post thora TECHNIQUE: A PA inspiration expiration views. COMPARISON: Comparison is made with prior study dated October 29, 2022. FINDINGS: The patient is status post left thoracentesis. Mild residual blunting of the left costophrenic angle. No evidence of pneumothorax. RAD/Chest Insp/Exp 2 View IMPRESSION: Status post left thoracentesis with mild residual blunting of the left costophrenic angle. No evidence of pneumothorax. Electronically Signed: Calvin Mcclure MD at 14:52 EDT ,
[2022-10-30 14:46] LABS: Cytology, Body Fluid / CSF SEE PATHOLOGY REPORT
[2022-10-30 15:19] LABS: Body Fluid Mononuclear WBC % 94.7 %; Body Fluid Polynuclear WBC # 0.023 10^3/uL; Body Fluid Polynuclear WBC % 5.3 %; Body Fluid Total Cells Counted 0.667 10^3/ul; White Blood Count/Body Fluid 0.433 10^3/uL
--- NOTE | 2022-10-30 15:29 | CASEMGMT ---
KASEY SANTO NOTE: KASEY SANTO to room. @ bedside. Discussed possible need for Home O2 @ discharge. Reviewed local DME co's and made aware [facility] is affiliated w/[facility]. They state okay w/[facility]. Green sheet placed on chart for Home O2 set-up, should pt qualify. Rodri JUANN KASEY CM
[2022-10-30] MEDS: Bumetanide 0.5 MG Tablet 1 MG PO (16:03)
[2022-10-30 16:22] LABS: Glucose, Body Fluid 234 mg/dL (40-70); LDH,Body Fluid 85 Units/l (Not Establ.); Protein, Body Fluid 1.1 g/dL (Not Establ.)
[2022-10-30 16:25] LABS: Bedside Glucose 199 mg/dL (74-106)
[2022-10-30 18:06] LABS: Auto B Fluid Analyzer BKGD Ct COUNTS W/IN LIMITS (W/IN LIMITS); Lymphocytes 19 %; Macrophages 34 %; Mesothelial Cells 36 %; Monocytes 8 %; Neutrophil (Segs) 3 %
[2022-10-30 18:07] LABS: Appearance/Body Fluid CLOUDY; Color/Body Fluid RED; Source- Body Fluid THORACENTESIS
[2022-10-30 23:15] LABS: Bedside Glucose 174 mg/dL (74-106)
[2022-10-31 02:04] VITALS: PULSE 63; RESP 14; O2SAT 97
[2022-10-31 03:17] VITALS: BP 103/57; PULSE 65; RESP 18; TEMP 36.4; O2SAT 100
[2022-10-31] MEDS: HEPARIN/D5w 25,000 UNITS 25,000 UNITS/250 ML IV.SOLN. 8 UNITS CONT INF (03:25)
[2022-10-31 03:48] VITALS: BMI 36.1
[2022-10-31 04:37] LABS: Partial Thromboplast Time 44.2 Seconds (24.1-36.2)
[2022-10-31 04:43] LABS: Anion Gap 3 (5-15); BUN 30 mg/dL (7-18); BUN/Creat Ratio 22.1 RATIO (10-20); Calcium,Total 7.5 mg/dL (8.5-10.1); Chloride 106 mmol/L (98-107); Creatinine, Serum 1.36 mg/dL (0.70-1.30); EST Glomerular Filtration Rate 57 mL/min (>60); Est Glom Filt Rate - Afr Amer 69 mL/min (>60); Estimated Creatinine Clearance 52.78 ml/min; Glucose 120 mg/dL (74-106); Magnesium 1.7 mg/dL (1.6-2.6); Phosphorus 3.6 mg/dL (2.5-4.9); Potassium 4.6 mmol/L (3.5-5.1); Sodium Level 133 mmol/L (136-145)
[2022-10-31] MEDS: Heparin Injection (Vial) 5,000 UNIT/ML VIAL IV (05:08)
[2022-10-31] MEDS: Levothyroxine 50 MCG Tablet PO (05:13)
[2022-10-31] MEDS: Sucralfate 1 GM Tablet PO ×2 (05:13→12:38)
--- NOTE | 2022-10-31 05:55 | RAD_ITS ---
INDICATION: Effusion EXAMINATION/TECHNIQUE: X-RAY - XR Chest 1 View COMPARISON: October 30, 2022. FINDINGS: Cardiac silhouette on the left side is obscured however this may be partially secondary to significant patient rotation. Allowing for patient rotation the interstitium is probably similar to the prior study with mild bilateral interstitial prominence. There are some confluent opacity at the left mid to lower lung, not seen on the prior exam. No large pleural effusion. No pneumothorax. No acute bony pathology. RAD/Chest 1 View (Portable) IMPRESSION: Significant patient rotation with findings suggesting development of left mid to lower lung airspace disease. Electronically Signed: Soy Ordonez MD at 19:43 EDT ,
[2022-10-31] MEDS: Insulin Lispro 100 UNIT/ML INSULN.PEN SC ×2 (06:37→12:37)
[2022-10-31 07:00] LABS: Bedside Glucose 195 mg/dL (74-106)
[2022-10-31 08:05] VITALS: O2SAT 96
[2022-10-31 08:29] LABS: Absolute Lymphocyte Count 0.91 X10^3/uL (0.83-4.51); Basophil# 0.05 X10^3/uL; Basophil% 0.8 % (0-1); Eosinophil# 0.67 X10^3/uL; Eosinophils% 10.5 % (0-5); Hematocrit 32.7 % (40-54); Hemoglobin 10.5 g/dL (13.0-16.5); Lymphocyte # 0.91 X10^3/ul (0.83-4.51); Lymphocyte % 14.2 % (19-41); Mean Corp Hgb Conc 32.1 g/dL (32-36); Mean Corpuscular Hgb 31.7 pg (27.0-32.0); Mean Corpuscular Volume 98.8 fL (80-94); Mean Platelet Vol. 8.4 fl (6.2-12.0); Monocyte# 0.73 X10^3/uL; Monocyte% 11.4 % (0-10); NRBC Flagged by Analyzer 0 % (0-5); Neutrophil # 4.03 X10^3/uL (2.7-7.7); Neutrophil % 62.9 % (47-70); Platelet Count 151 K/mm3 (150-450); RBC Distribution Width SD 51.1 fl (35.1-43.9); Red Blood Count 3.31 M/mm3 (4.6-6.2); White Blood Count 6.4 K/mm3 (4.4-11.0)
[2022-10-31] MEDS: Folic Acid 1 MG Tablet PO (08:30)
[2022-10-31] MEDS: Lactulose 20 GM/30 ML UDC PO (08:30)
[2022-10-31] MEDS: Bumetanide 0.5 MG Tablet 1 MG PO (08:30)
[2022-10-31] MEDS: Thiamine Hydrochloride 100 MG Tablet PO (08:30)
[2022-10-31] MEDS: Ceftriaxone 1 GM/50 ML BAG IV (08:32)
[2022-10-31] MEDS: LINAGLIPTIN 5 MG TABLET PO (08:33)
[2022-10-31] MEDS: Insulin Glargine-YFGN 100 UNIT/ML Pen 15 UNIT SC (08:34)
[2022-10-31] MEDS: Nadolol 20 MG Tablet PO (08:34)
[2022-10-31 08:41] VITALS: BP 103/60; PULSE 70; RESP 16; TEMP 36.4; O2SAT 95
[2022-10-31 09:15] VITALS: BP 106/58; PULSE 72; RESP 18; TEMP 36.2; O2SAT 97
[2022-10-31 10:28] LABS: Partial Thromboplast Time 95.6 Seconds (24.1-36.2)
[2022-10-31 10:30] VITALS: O2SAT 85; O2SAT 87; O2SAT 88; O2SAT 90; O2SAT 92
--- NOTE | 2022-10-31 11:34 | DS.PCM_ITS ---
Providers Date of Admission: 10/28/22 Date of Discharge: 10/31/22 Primary Care Physician: Dr. Xochitl Eid, DO Consultations 10/28/22 01:28 Consult: Gastroenterology Routine Consulting Provider: GabbieCarrington Reason for Consult: Cirrhosis EMERGENT Consult: No MD Notified: Yes Date Notified: 10/28/22 Time Notified: 07:44 Method of Notification: Text Reason For Visit: ACUTE ON CHRONIC DECOMPENSATED LIVER FAILURE Diagnosis Discharge Diagnosis (1) Acute respiratory failure with hypoxia: Status: Deleted Code(s): J96.01 - Acute respiratory failure with hypoxia (2) Pleural effusion: Status: Acute Code(s): J90 - Pleural effusion, not elsewhere classified (3) Ascites: Status: Acute Code(s): R18.8 - Other ascites (4) Cirrhosis of liver: Status: Acute Code(s): K74.60 - Unspecified cirrhosis of liver (5) Hyperkalemia: Status: Acute Code(s): E87.5 - Hyperkalemia (6) Hyperglycemia: Status: Acute Code(s): R73.9 - Hyperglycemia, unspecified (7) Anasarca: Status: Acute Code(s): R60.1 - Generalized edema (8) Macrocytic anemia: Status: Acute Code(s): D53.9 - Nutritional anemia, unspecified (9) Portal vein thrombosis: Status: Acute Code(s): I81 - Portal vein thrombosis (10) Hyponatremia: Status: Acute Code(s): E87.1 - Hypo-osmolality and hyponatremia (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 (12) Aortic stenosis: Status: Acute Code(s): I35.0 - Nonrheumatic aortic (valve) stenosis (13) Portal hypertensive gastropathy: Status: Acute Code(s): K76.6 - Portal hypertension; K31.89 - Other diseases of stomach and duodenum (14) Duodenal ulcer: Status: Acute Code(s): K26.9 - Duodenal ulcer, unspecified as acute or chronic, without hemorrhage or perforation (15) Hypomagnesemia: Status: Acute Code(s): E83.42 - Hypomagnesemia (16) Acute respiratory failure with hypoxia and hypercapnia: Status: Acute Code(s): J96.01 - Acute respiratory failure with hypoxia; J96.02 - Acute respiratory failure with hypercapnia Medications at Discharge Home Medications levothyroxine 50 mcg tablet 50 mcg PO DAILY 10/27/22 metformin 750 mg tablet,extended release 24 hr 1,500 mg PO DAILY 10/27/22 metformin 750 mg tablet,extended release 24 hr 750 mg PO QHS 10/27/22 sitagliptin phosphate 100 mg tablet (Januvia) 100 mg PO DAILY 10/27/22 apixaban 5 mg tablet (Eliquis) 5 mg PO BID #60 tabs 10/31/22 bumetanide 0.5 mg tablet 1 mg PO BIDLX #60 tabs 10/31/22 lactulose 20 gram/30 mL oral solution 20 g (30 mL) PO DAILY #1,200 mL 10/31/22 levofloxacin 750 mg tablet 750 mg PO Q24H 4 days #4 tabs 10/31/22 nadolol 20 mg tablet 10 mg PO DAILY #15 tabs 10/31/22 pantoprazole 40 mg tablet,delayed release (Protonix) 40 mg PO BID #60 tabs 10/19 09/10 sucralfate 1 gram tablet 1 g PO TIDAC #90 tabs 10/31/22 Hospital Course Procedures 2-D Echocardiogram, EGD, EKG, Paracentesis, Thoracentesis and - (CTA chest/CTA abdomen and pelvis/MRCP) Summary of Care Provided Minutes Spent on Discharge: 46 Hospital Course: Mr. Shelley is a 57-year-old chronically ill appearing white male who presented to the emergency department at [facility] on 10/28/2022 with progressively worsening shortness of breath. He had no significant medical history at the time of presentation other than diabetes, and hypertension. At presentation he reported that he was having worsening shortness of breath. Symptoms were present at rest but worsened with exertion. He indicated he had a chronic cough which was occasionally productive but no worse or better than his baseline. He also reported significant swelling in his bilateral lower extremities and into his abdominal subcutaneous tissue. Oxygen saturations on presentation were 71% on room air. Vital signs were otherwise fairly stable and unremarkable. CBC showed anemia that was macrocytic but was otherwise unremarkable. There is no baseline data available for comparison for this gentleman. INR was 1.3. D-dimer was markedly elevated at 16.75. Chemistry panel showed hyponatremia with a sodium of 129, hyperkalemia with a potassium of 5.9, and renal function that was normal with a serum creatinine of 1. 1 8. Serum glucose was 472 on presentation he had a normal anion gap and bicarbonate. BNP was slightly elevated at 117.7. His albumin is extremely low. UA was overall unremarkable. Given his D-dimer elevation a CTA of the chest, abdomen, and pelvis was performed. CTA of the chest showed no pulmonary embolus but did demonstrate a large left pleural effusion as well as atelectasis of the left lower lobe and scattered groundglass opacities in the right lung with associated bronchiectasis as well as cirrhosis with sequela of portal hypertension. Abdominal CTA again showed cirrhosis with portal hypertension as well as a partially thrombosed portal vein and mild bowel wall thickening. He was given a therapeutic dose of Lovenox in the emergency department and admitted to the medical floor. He denied any history of alcohol abuse and reported that he had typically weight 185 pounds. His weight on presentation was up dramatically compared to previous. We placed him on a heparin drip and started IV Bumex given his low albumin. A paracentesis was performed and 4 L of fluid were removed. Unfortunately I could not obtain a SAG score as a fluid albumin was not obtained. A thoracentesis was performed given his refractory effusion to diuresis. This was transudative per lights criteria. Cultures were pending at the time of discharge however Gram stain was unremarkable. Gastroenterology was consulted given his portal vein thrombosis and new diagnosis of cirrhosis. We did obtain an ammonia level which was elevated and started him on lactulose. He will be discharged on lactulose 20 mg daily with instructions to increase dose if he is not having 2-3 bowel movements a day. With him requiring oral anticoagulation and his cirrhosis and EGD was performed by gastroenterology on 10/29/2022 that showed a normal esophagus, severe portal hypertensive gastropathy, many oozing cratered duodenal ulcers with visible vessel in the duodenal bulb and the first portion and second portion of the duodenum with the largest lesion being 10 mm. Areas were successfully injected with epinephrine and cautery was used for hemostasis. He was started on Protonix IV drip and octreotide. These were continued for 48 hours given the fact that he needed to be anticoagulated with heparin and he was transition to Carafate 4 times daily and Protonix 40 mg p.o. twice daily at the time of discharge. Both of these will be continued for 8 weeks. Autoimmune work-up was pursued for his liver disease as he does not have a history of alcohol disease and his mother of liver disease as well. All of these labs were pending at the time of discharge and these as well as his biopsies from EGD will be reviewed upon follow-up with gastroenterology. He was started on nadolol 10 mg daily and his lisinopril was discontinued at this time. I would restart low-dose lisinopril in the future if his blood pressure tolerates with his history of diabetes. We did obtain a hemoglobin A1c given his marked hyperglycemia at the time of presentation and it was 7.4. Given he was controlled, we did just restart his home oral agents at discharge but he will need close follow-up. We also started on Bumex 1 mg p.o. twice daily for his volume overload. I have asked him to and obtain a repeat CBC and basic metabolic profile within the next week to reevaluate his hemoglobin with the need of anticoagulation at discharge and his renal function and potassium with utilization of diuretics. He was transition from heparin drip to Eliquis 5 mg p.o. twice daily. 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 The clot burden had seemingly reduced with the heparin drip. I discussed the case with cardiology and they recommended not using the loading dose of Eliquis for clot given his risk of bleeding and the improvement noted on MRCP. Prescription for Eliquis, Bumex, lactulose, no Adderall, Carafate, and Protonix were sent to the local pharmacy. In addition he was placed on SBP prophylaxis with his cirrhosis and evidence of GI bleeding on EGD. He was on ceftriaxone after his EGD identified the bleeding for 2 days and will complete 5 more days of Levaquin at the time of discharge. The patient does have a history of tobacco abuse and I suspect a component of COPD. He did require oxygen with exertion at home. He did not require oxygen at rest. Oxygen is to be 5 L while exerting himself. I did discuss with him the possibility of recurrence of his pleural effusion and his ascites and more taps may be needed in the future. We also obtain an echocardiogram as he did have a significant cardiac murmur. This showed an EF of 65% and mild aortic stenosis. Unfortunately the patient was somewhat uncooperative for the exam so the study was somewhat limited. We referred him to cardiology to be followed up in the next 3 months with his aortic stenosis however his liver disease is severe enough that his aortic stenosis may not progress to the point where anything needs to be done. We did extensively discussed the severity of his liver disease and his overall mortality risk. I strongly encouraged him to keep his appointments and to maintain his medications and follow medical advice given while he is hospitalized. He was quite argumentative throughout his entire stay and demanded to be discharged multiple times throughout his stay. He was discharged in stable condition on 10/31/2022. Again he is to follow-up with his primary care physician within the next 1 to 2 weeks, gastroenterology within the next 1 to 2 weeks, and cardiology within the next 3 months. I reviewed all of his new medications and discharge instructions with regard to follow-up prior to discharge with his at the bedside he voiced understanding. We did try to set up home health however he is transitioning from primary care physician as his previous PCP left the area. Unfortunately we are unable to set up home health without a primary care physician being involved and he indicated they would find a new physician and paperwork for home health was given so it could be initiated at that time. Discharge diagnoses: Acute hypoxic and hypercapnic respiratory failure Large left pleural effusion-transudative Ascites Anasarca Severe portal hypertensive gastropathy Duodenal ulcers Portal vein thrombus Liver cirrhosis Budd-Chiari syndrome LAZARUS-resolved Hypomagnesemia-resolved Aortic stenosis Hyponatremia-resolved Macrocytic anemia [id number] A1c 7.4 Hyperkalemia-resolved Hypertension Hypothyroidism Physical Exam Narrative HeNo issues overnight. Patient states he is feeling well enough and would like to go home. He is quite adamant that he does so today. When to go anywhere for rehab but did seem to ambulate around the room with his at the bedside. She feels that he is well enough to go home without any assistance at this time. Const alert, oriented x3 and no apparent distress Constitutional Narrative: Upper middle-aged white male, lying in bed, appears much older than stated age, at bedside, appears comfortable and nontoxic at this time however does look chronically ill, patient more agreeable today since I did discuss with him being discharged General Appearance: cooperative, comfortable, well developed, disheveled, ill appearing Positive for chronically, appears older than stated age and grossly edematous Orientation / Consciousness: awake, oriented to person, oriented to place and oriented to time Exam Limitations: no limitations Nutritional Appearance: obese HEENT normocephalic, head/scalp atraumatic, moist oral mucous membranes and oropharynx normal HEENT Narrative: Mild hearing loss, Mallampati 2, no thrush, dentition is poor Eyes PERRL, EOMs intact bilaterally and conjunctivae normal Eyes Narrative: No scleral icterus Neck no lymphadenopathy, supple, no JVD and no carotid bruits Neck Narrative: Cardiac murmur that radiates to bilateral carotid arteries, trachea midline Resp normal respiratory effort, no retractions, no use of accessory muscles and No clear to auscultation bilaterally Resp Narrative: Few scattered wheezes bilaterally Auscultation: wheezes; Negative for rales or rhonchi Cardio regular rate, regular rhythm, S1 normal heart sound, no rub, no gallops and no clicks; Negative for S2 normal heart sound or no murmurs Cardio Narrative: 4 out of 6 systolic murmur with a soft S2 radiates to bilateral carotid arteries loudest at right upper sternal border however here diffusely GI soft to palpation GI Narrative: Protuberant abdomen, no significant fluid wave, no organomegaly noted on exam however exam limited secondary to abdominal size, bowel sounds are normal Extremity Extremity Narrative: 2+ bilateral doughy pitting edema from feet up to thighs with some anasarca noted in anterior abdomen, no cyanosis or clubbing Skin No no rashes or lesions noted, no wounds, skin turgor normal, no jaundice, no petechiae and no mottling Skin Narrative: telangiectasias noted all over chest and arms Neuro oriented x3, CN's II-XII intact bilaterally, moves all extremities, no focal motor deficits and no sensory deficits noted Neuro Narrative: Generalized weakness Sensorium / Orientation: awake, alert, oriented to person, oriented to place and oriented to time Speech: speech normal Psych Psych Narrative: Patient more agreeable since we are talking about discharge today Weight / BMI Weight Weight: 101.7 kg Body Mass Index (BMI) 36.1 ABG / Lab / Microbiology Data Result Diagrams: 10/31/22 07:56 10/31/22 04:15 Laboratory: Laboratory Results - last 24 hr 10/29/22 08:40: [id number] 182, SRIDEVI-1 Antibody <0.2, SS-A/Ro IgG Antibody < 0.2, SS-B/La IgG Antibody < 0.2, Sm (Landon) Antibody <0.2, PIN WORKER Antibody <0.2, Scl-70 Scleroderma Ab <0.2, Double Strand DNA Ab <1, Centromere B Antibody <0.2, Anti-Mitochondrial Ab 25.0 H 10/30/22 08:00: Fluid Glucose 234 H, Fluid Total Protein 1.1, Fluid LDH 85 10/30/22 11:51: POC Glucose 305 H 10/30/22 14:42: Fluid Source THORACENTESIS, Fluid Color RED, Fluid Appearance CLOUDY, Fluid WBC 0.433, Fluid RBC 0.030, Fluid Tot Cell Count 0.667, Fld Polynuclear WBCs # 0.023, Fld Polynuclear WBCs % 5.3, Fluid Mononuclear WBCs 0.410, Fld Mononuclear WBCs % 94.7, Fluid Neutrophils 3, Fluid Lymphocytes 19, Fluid Monocytes 8, Fluid Macrophages 34, Fld Mesothelial Cells 36, Fl Patholog ist Comment May follow, Fluid Comment 2 SEE COMMENT 10/30/22 15:59: POC Glucose 199 H 10/30/22 21:25: APTT 57.0 H 10/30/22 22:41: POC Glucose 174 H 10/31/22 04:15: WBC Cancelled, Corrected WBC Cancelled, RBC Cancelled, Hgb Cancelled, Hct Cancelled, MCV Cancelled, MCH Cancelled, MCHC Cancelled, RDW Std Deviation Cancelled, RDW Coeff of Luna Cancelled, Plt Count Cancelled, MPV Cancelled, Immature Gran % (Auto) Cancelled, Neut % (Auto) Cancelled, Lymph % (Auto) Cancelled, [place] % (Auto) Cancelled, Eos % (Auto) Cancelled, Baso % (Auto) Cancelled, Absolute Neuts (auto) Cancelled, Absolute Lymphs (auto) Cancelled, Total Counted Cancelled, Neutrophils % (Manual) Cancelled, Band Neutrophils % Cancelled, Lymphocytes % (Manual) Cancelled, Monocytes % (Manual) Cancelled, Eosinophils % (Manual) Cancelled, Basophils % (Manual) Cancelled, Metamyelocytes % Cancelled, Myelocytes % Cancelled, Promyelocytes % Cancelled, Blast Cells % Cancelled, Plasma Cell % (Manual) Cancelled, Other Cells % Cancelled, Nucleated RBC % Cancelled, Nucleated RBCs/100 WBC Cancelled, Differential Comment Cancelled, Diff Path Review Cancelled, Hypersegmented Neuts Cancelled, Atypical Lymphocytes Cancelled, Reactive Lymphocytes Cancelled, Smudge Cells Cancelled, Toxic Granulation Cancelled, Toxic Vacuolation Cancelled, Dohle Bodies Cancelled, Nichole Rods Cancelled, Platelet Estimate Cancelled, Plt Morphology Comment Cancelled, RBC Morphology Cancelled, Polychromasia Cancelled, Hypochromasia Cancelled, Poikilocytosis Cancelled, Basophilic Stippling Cancelled, Anisocytosis Cancelled, Microcytosis Cancelled, Macrocytosis Cancelled, Spherocytes Cancelled, Sickle Cells Cancelled, Target Cells Cancelled, Tear Drop Cells Cancelled, Ovalocytes Cancelled, Stomatocytes Cancelled, Nettles-High [place]mana Bodies Cancelled, Ted Cells Cancelled, Bite Cells Cancelled, Crenated Cell Cancelled, Acanthocytes (Spur) Cancelled, Rouleaux Cancelled, Schistocytes Cancelled 10/31/22 04:15: Sodium 133 L, Potassium 4.6, Chloride 106, Carbon Dioxide 24.0, Anion Gap 3 L, BUN 30 H, Creatinine 1.36 H, Estim Creat Clear Calc 52.78, Est GFR (MDRD) Af Amer 69, Est GFR (MDRD) Non-Af 57 L, BUN/Creatinine Ratio 22.1 H, Glucose 120 H, Calcium 7.5 L, Phosphorus 3.6, Magnesium 1.7 10/31/22 04:15: APTT 44.2 H 10/31/22 06:36: POC Glucose 195 H 10/31/22 07:56: WBC 6.4, RBC 3.31 L, Hgb 10.5 L, Hct 32.7 L, MCV 98.8 H, MCH 31.7, MCHC 32.1, RDW Std Deviation 51.1 H, RDW Coeff of Luna 14.0, Plt Count 151, MPV 8.4, Immature Gran % (Auto) 0.200, Neut % (Auto) 62.9, Lymph % (Auto) 14.2 L , [place] % (Auto) 11.4 H, Eos % (Auto) 10.5 H, Baso % (Auto) 0.8, Absolute Neuts (auto) 4.0, Absolute Lymphs (auto) 0.91, Nucleated RBC % 0 10/31/22 10:00: APTT 95.6 H* Microbiology: Microbiology 10/30/22 14:42 Fluid - Thoracentesis Fluid Body Fluid Culture - Preliminary No growth-Final to follow 10/28/22 14:00 Fluid - Paracentesis (Abd) Gram Stain - Final 10/28/22 14:00 Fluid - Paracentesis (Abd) Body Fluid Culture - Final Culture exhibits no growth. 10/28/22 14:00 Fluid - Paracentesis (Abd) Anaerobic Culture - Preliminary No growth in 48 hours. Radiography Diagnostic Testing: Radiology Impression Thoracentesis Ultrasound 10/30/22 13:30 IMPRESSION: Ultrasound-guided left thoracentesis. Electronically Signed: Calvin Mcclure MD at 15:10 EDT , Chest X-Ray 10/30/22 14:25 IMPRESSION: Status post left thoracentesis with mild residual blunting of the left costophrenic angle. No evidence of pneumothorax. Electronically Signed: Calvin Mcclure MD at 14:52 EDT , D/C Instructions Discharge Diet: Low fat / Low cholesterol (Limit fluid intake to 2 L or less after discharge), 1800 Calorie Control Diet and 2000 mg Sodium Diet Return to work on: 11/02/22 Meaningful Use Info Meaningful Use Diagnoses (Choose all that apply): None applicable Discharge Plan Admission Admit Date/Time: 10/28/22 00:04 Primary Reason for Your Visit: shortness of breath Attending Provider: Katrin Mcclelland Primary Care Provider: Xochitl Eid Consulting Providers: Phil Menjivar ; Friend,Carrington Instructions Patient Instructions: SHANTEL RN Paracentesis Dc, SHANTEL RN Thoracentesis Dc, Low-Salt Choices, Low Salt Diet Dc Additional Instructions / Restrictions: 1. Please call either your primary care physician's office or Dr. Cartwright's office and have them order a CBC (complete blood count) and a BMP (basic metabolic profile) to be done and reviewed by them in 1 week 2. Please call Dr. Cartwright's office at the number below on Wednesday for a hospital follow-up appointment to be done within the next 2 weeks after discharge preferably to be done as soon as possible 3. You did not require oxygen while at rest but did do require oxygen at 5 L with exertion please use this as directed 4. Please note medication changes and additions below Discharge Orders/Prescriptions Prescriptions: New bumetanide 0.5 mg Tablet 1 mg PO BIDLX Qty: 60 1RF nadolol 20 mg Tablet 10 mg PO DAILY Qty: 15 1RF lactulose 20 gram/30 mL Solution 20 g PO DAILY Qty: 1200 0RF Rx Instructions: goal is 2-3 bowel movements daily...Increase to twice daily if you are not having 2-3 BM daily sucralfate 1 gram Tablet 1 g PO TIDAC Qty: 90 1RF Rx Instructions: take for 2 mos Eliquis 5 mg tablet 5 mg PO BID Qty: 60 2RF pantoprazole [Protonix] 40 mg tablet,delayed release (DR/EC) 40 mg PO BID Qty: 60 1RF levofloxacin 750 mg tablet 750 mg PO Q24H 4 Days Qty: 4 0RF Continued levothyroxine 50 mcg tablet 50 mcg PO DAILY Label Comments: TAKE 1 (ONE) TABLET BY MOUTH DAILY 30 MINUTES BEFORE BREAKFAST metformin 750 mg tablet extended release 24 hr 1,500 mg PO DAILY Label Comments: TAKE 2 (TWO) TABLET IN THE MORNING AND 1 TABLET IN THE EVENING metformin 750 mg tablet extended release 24 hr 750 mg PO QHS Label Comments: TAKE 2 (TWO) TABLET IN THE MORNING AND 1 TABLET IN THE EVENING Januvia 100 mg tablet 100 mg PO DAILY Discontinued lisinopril 10 mg tablet 10 mg PO DAILY Label Comments: TAKE 1/2 TABLET BY MOUTH EVERY DAY Referrals / Follow Up: Cony Lovell MD [Med Staff - Active Staff] - Within 3 Months (Call Wednesday to set up an appointment to be seen in 3 months for your aortic stenosis this is likely causing your heart murmur) Xochitl Eid DO [Primary Care Provider] - Within 1 Week (Follow-up with her or PCP of your choosing within the next 1 to 2 weeks. Please call Wednesday for an appointment) FriendCarrington DO [Med Staff - Active Staff] - Within 2 Weeks (Call Wednesday to set up a hospital follow-up appointment) Disposition Disposition (needs filled in before D/C Order can be placed): Home, Self Care Charges/Coding Visit Charges Inpatient E&M: 89580 Disch Hosp >30min
--- NOTE | 2022-10-31 12:00 | CASEMGMT ---
KASEY SANTO in to discuss HHC at discharge as requested by hospitalist. RN GAL explained that patient is not established with PCP and therefore HHC will not be willing to accept. Patient and voiced understanding. states that patient did well ambulating to the restroom. PCP list was given to patient previously and encourage to schedule appt. voiced understanding. A list of HHC in-network with patient's insurance was provided to patient for future use. Patient and had no further questions or concerns at this time.
[2022-10-31 13:00] LABS: Bedside Glucose 384 mg/dL (74-106)
[2022-11-01 18:07] LABS: Albumin 2.1 g/dL (2.9-4.4); Alpha-1-Globulins 0.2 g/dL (0.0-0.4); Alpha-2-Globulins 0.5 g/dL (0.4-1.0); Anti-Smooth Muscle ABS 14 Units (0-19); Ceruloplasmin 25.9 mg/dL (16.0-31.0); Copper, Serum or Plasma 115 ug/dL (69-132); Cytoplasmic Ab (C-ANCA) <1:20 titer (Neg:<1:20); Gamma Globulin 1.6 g/dL (0.4-1.8); Immunoglobulin A 943 mg/dL (90-386); Immunoglobulin G 1581 mg/dL (603-1613); Immunoglobulin M 54 mg/dL (20-172); PROEL- TOTAL PROTEIN 5.5 g/dL (6.0-8.5); Perinuclear Ab (P-ANCA) <1:20 titer (Neg:<1:20)
[2022-11-02 08:57] LABS: Pathologist Comment/Body Fluid Reviewed
[2022-11-02 12:38] LABS: Pathologist Comment/Body Fluid Reviewed
== END 2022-10-31 14:11 | disposition home or self-care (01) | DRG 432 ==
LOC: ED 10-28 01:04 → PCU 10-28 01:10
PROVIDERS: Internal Medicine Gastroenterology; Admitting Provider Hospitalist; Emergency Provider Emergency Medicine; PCP Family Medicine; Visit Provider Internal Medicine
PROC: 0DJ08ZZ Inspection of Upper Intestinal Tract, Via Natural or Artificial Opening Endoscopic (ICD-10-PCS; CPT 43235; principal; 2022-10-29 11:55)
DX: K74.60 Unspecified cirrhosis of liver (principal); I82.0 Budd-Chiari syndrome; I81 Portal vein thrombosis; J96.01 Acute respiratory failure with hypoxia; K26.4 Chronic or unspecified duodenal ulcer with hemorrhage; J96.02 Acute respiratory failure with hypercapnia; N17.9 Acute kidney failure, unspecified; K76.6 Portal hypertension; J90 Pleural effusion, not elsewhere classified; E87.1 Hypo-osmolality and hyponatremia; R18.8 Other ascites; E11.65 Type 2 diabetes mellitus with hyperglycemia; J47.9 Bronchiectasis, uncomplicated; E88.09 Other disorders of plasma-protein metabolism, not elsewhere classified; E87.5 Hyperkalemia; E03.9 Hypothyroidism, unspecified; I35.0 Nonrheumatic aortic (valve) stenosis; D50.9 Iron deficiency anemia, unspecified; K31.89 Other diseases of stomach and duodenum; E83.42 Hypomagnesemia; K75.81 Nonalcoholic steatohepatitis (NASH); E66.9 Obesity, unspecified; Z68.37 Body mass index [BMI] 37.0-37.9, adult; Z79.84 Long term (current) use of oral hypoglycemic drugs; Z79.01 Long term (current) use of anticoagulants; Z79.899 Other long term (current) drug therapy; Z87.891 Personal history of nicotine dependence
CPT/HCPCS: 32555; 36415; 36600; 49083; 71045; 71046; 71275; 74177; 74181; 80048; 80053; 81001; 81270; 82009; 82103; 82105; 82140; 82390; 82525; 82607; 82728; 82746; 82784; 82803; 82945; 82962; 83036; 83516; 83540; 83550; 83615; 83690; 83735; 83880; 84100; 84157; 84165; 84443; 84484; 85025; 85379; 85610; 85730; 86225; 86235; 86256; 86334; 86706; 86803; 87070; 87075; 87205; 88108; 88305; 88313; 89050; 93005; 93306; 94002; 94003; 94762; 97162; 97166; 99285; J7040; Q9967; A4216; J0612; J1940; J2405; J3490